=== PATIENT | female | born 1980 | race Caucasian/White ===

== ENCOUNTER → 2017-01-19 | Outpatient (CLI) | payer BC ==
[~2017-01-19] MED LIST: CEPH500C PO; SULF800T23 PO
== END | disposition home or self-care (01) ==
LOC: C.PAPS 11:11
PROVIDERS: ATTEND Family Medicine
DX: Z12.72 Encounter for screening for malignant neoplasm of vagina (principal)

== ENCOUNTER → 2018-01-18 | Outpatient (CLI) | payer BC | END | disposition home or self-care (01) | LOC: C.PAPS 13:30 | PROVIDERS: ATTEND Family Medicine | DX: Z12.72 Encounter for screening for malignant neoplasm of vagina (principal) ==

== ENCOUNTER 2022-06-02 11:11 | Inpatient (IN) ==
[2022-06-02 12:40] LABS: Basophils # (auto) 0.06 K/uL (0-0.2); Basophils % (auto) 0.7 %; Eosinophils # (auto) 0.07 K/uL (0-0.50); Eosinophils % (auto) 0.9 %; Hematocrit (blood only) 41.8 % (34.1-44.9); Hemoglobin 13.7 g/dl (12.0-16.0); Immature Granulocytes # (auto) 0.03 K/uL (0.00-0.02); Immature Granulocytes % (auto) 0.4 %; Lymphocytes # (auto) 2.15 K/uL (1.2-3.4); Lymphocytes % (auto) 26.1 %; Mean Corpuscular Hemoglobin 26.9 pg (25.0-34.0); Mean Corpuscular Hgb Conc 32.8 g/dL (32.0-36.0); Mean Corpuscular Volume 82.1 fL (80.0-100.0); Mean Platelet Volume 9.1 fL (9.4-12.3); Monocytes # (auto) 0.53 K/uL (0.24-0.82); Monocytes % (auto) 6.4 %; Neutrophils # (auto) 5.39 K/uL (1.4-6.5); Neutrophils % (auto) 65.5 %; Platelet Count 360 K/uL (130-400); RDW Coefficient of Variation 14.1 % (11.5-14.5); RDW Standard Deviation 42.2 fL (36.4-46.3); Red Blood Count 5.09 M/uL (3.93-5.22); White Blood Count 8.23 K/ul (4.8-10.8)
[2022-06-02 13:00] LABS: Albumin Globulin Ratio 1.2 (0.9-2); Albumin Level 4.4 gm/dl (3.4-5.0); BUN Creatinine Ratio 21.1 (10-20); Bilirubin,Total 0.6 mg/dl (0.2-1.0); Calcium 9.3 mg/dl (8.5-10.1); Creatinine Clr Calc Pharmacy 111.9 ml/min; Est GFR (African American) 134.4 ml/min; Globulin 3.6 gm/dl (2.5-4.0); Phosphorus 2.7 mg/dl (2.5-4.9)
[2022-06-02 13:03] LABS: Appearance Urine Cloudy (Clear); Bacteria Urine Automated 2+ (Negative); Bilirubin Urine Negative (Negative); Blood Urine Negative (Negative); Color Urine Yellow; Epithelial Cell Urine Auto >30 /lpf (0-5); Glucose Urine UA Negative (Negative); Ketones Urine Negative (Negative); Leukocyte Esterase Urine Negative (Negative); Nitrite Urine Negative (Negative); Protein Urine Negative (Negative); Urobilinogen Urine Negative (Negative); pH Urine 6.5 (4.5-7.5)
--- NOTE | 2022-06-02 14:11 | Emergency Department Note ---
Impression & Plan Right leg weakness, Demyelinating disease ED Provider Note HISTORY OF PRESENT ILLNESS: Patient is a 42 year old female presenting with right leg limp. Patient reports that for the past 4 days she has been having progressively worsening weakness and limp in her RLE. Reports she woke up 4 days ago and had difficulties ambulating secondary to dragging her right foot on the ground. Denies any injury to her leg or back. Denies any bowel or bladder incontinence. Denies any saddle anesthesia. Denies any pain down her leg. Denies any numbness or tingling down the leg. Reports it feels like her right ankle is inverting and she is unable to walk correctly. She has been using a crutch to help with balance. Reports she is unable to stand on her toes secondary to weakness in the leg. Denies any recent changes in medications. Denies any fevers. Denies any history of similar symptoms. Denies any family history of neurological disorders such as multiple sclerosis. Denies any pain in pelvis or injury to hips. Denies any noteable rashes. Patient reports her PCP saw her yesterday and she was noted to have low vitamin D levels. Reports she is scheduled for an MRI of her brain, but her symptoms worsened significantly over the past 48 hours, prompting her to present to the ER. She denies any numbness/tingling/weakness in any other extremities. Denies any headache or changes in vision. ROS: Constitutional: No fever, chills, or weakness Skin: No rash or diaphoresis HENT: No headaches or congestion Eyes: No vision changes Cardio: No chest pain, palpitations or leg swelling Respiratory: No cough, wheezing or shortness of breath GI: No nausea, vomiting, diarrhea, constipation : No dysuria, polyuria MSK: No joint or back pain +right leg limp Neuro: No loss of sensation, confusion, focal deficits, numbness, tingling Psychiatric: No mood changes PMHx: Depression PHYSICAL EXAM: Constitutional: Patient appears in no acute distress. HENT: Head: Normocephalic and atraumatic. Eyes: EOMI, PERRL Mouth/Throat: Mucous membranes moist. Neck: Trachea midline. Neck supple. Cardiovascular: RRR, No murmurs, rubs or gallops. Intact distal pulses. Pulmonary/Chest: No respiratory distress. Breath sounds clear and equal bilaterally. No wheezes or rales. No chest wall tenderness to palpation. Abdominal: BS +. Abdomen soft, no tenderness, rebound or guarding. Back: No midline spinal tenderness, no paraspinal tenderness, no CVA tenderness. Musculoskeletal: - RLE: Able to wiggle toes, dorsiflex/plantarflex ankle/flex and extend knee. Sensation intact to light tough throughout nerve distributions of leg. Intact DP/PT pulses. Skin: Warm and dry. No rash, erythema, pallor or cyanosis Psychiatric: Appropriate mood and affect for situation. Neurological: Alert and keenly responsive. CN II-XII grossly intact, moving all extremities equally and fully. Patient has Trandelenburg-like gait with putting weight on right leg. Unable to stand on right tip toes. No clonus. Babinski downgoing bilaterally. MDM: - Vitals signs stable. - Laboratory workup grossly unremarkable. - CT lumbar spine and pelvis showed degenerative disc disease. - MRI brain w/wo contrast showed findings concerning for demyelinating disorder, with noteable 1.4 cm lesion in left parietal lobe. MRI lumbar spine grossly unremarkable. - Discussed case with neurologist store operations specialist, Dr. Yadav. He recommended admission for PT/OT assessment as well as further workup such as LP. He recommends holding on steroids at this time. - Discussed results with patient and her . They were agreeable to admission. - Hospitalist consulted for admission. - Patient admitted to [facility] for further evaluation and management. ASSESSMENT AND PLAN: Diagnosis: RLE weakness; demyelinating disorder Plan: admit Past Med/Surg History Social History Smoking Status: Never smoker Feels Safe at Home: Yes Allergies Allergies Allergy/AdvReac Type Severity Reaction Status Date / Time [id number] Allergy Unknown Uncoded 06/13/04 10:28 Home Meds Home Medications Medication Instructions Recorded Confirmed sertraline 25 mg tablet 50 mg PO QAM 06/02/22 06/02/22 sertraline 50 mg tablet 50 mg PO QAM 06/02/22 06/02/22 Results & Data (ED) Vital Signs Vital Signs - 24 hr 06/02/22 11:15 Temperature 36.9 C Temperature Source Temporal Artery Scan Pulse Rate 82 Respiratory Rate 16 Respiratory Effort / Characteristics Non-Labored Respiratory Depth Normal Blood Pressure 124/84 Blood Pressure Mean 97 Pulse Oximetry 98 Oxygen Delivery Method Room Air Sepsis Recent Fever Within 48 Hours No Sepsis New/Unexplained Change in Mental Status No Sepsis Action Taken by Nursing No Action Required Laboratory Data Result diagrams: 06/02/22 12:21 06/02/22 12:21 Lab Results 06/02/22 06/02/22 06/02/22 Range/Units 12: 12:21 Unknown WBC 8.23 (4.8-10.8) K/ul RBC 5.09 (3.93-5.22) M/uL Hgb 13.7 (12.0-16.0) g/dl Hct 41.8 (34.1-44.9) % MCV 82.1 (80.0-100.0) fL MCH 26.9 (25.0-34.0) pg MCHC 32.8 (32.0-36.0) g/dL RDW Std Deviation 42.2 (36.4-46.3) fL RDW Coeff of July 14.1 (11.5-14.5) % Plt Count 360 (130-400) K/uL MPV 9.1 L (9.4-12.3) fL Immature Gran % (Auto) 0.4 % Neut % (Auto) 65.5 % Lymph % (Auto) 26.1 % Centre % (Auto) 6.4 % Eos % (Auto) 0.9 % Baso % (Auto) 0.7 % Neut # (Auto) 5.39 (1.4-6.5) K/uL Lymph # (Auto) 2.15 (1.2-3.4) K/uL Centre # (Auto) 0.53 (0.24-0.82) K/uL Eos # (Auto) 0.07 (0-0.50) K/uL Baso # (Auto) 0.06 (0-0.2) K/uL Immature Gran # (Auto) 0.03 H (0.00-0.02) K/uL Sodium 136 (136-145) mmol/L Potassium 4.0 (3.5-5.1) mmol/L Chloride 102 (98-107) mmol/L Carbon Dioxide 27 (21-32) mmol/L Anion Gap 7 (3-11) BUN 12 (6-23) mg/dl Creatinine 0.57 L (0.6-1.2) mg/dl Est Cr Clr Drug Dosing 111.9 ml/min Est GFR ( Amer) 134.4 ml/min Est GFR (Non-Af Amer) 116.0 ml/min BUN/Creatinine Ratio 21.1 H (10-20) Glucose 82 (70-99(Fasting)) mg/dl Calcium 9.3 (8.5-10.1) mg/dl Phosphorus 2.7 (2.5-4.9) mg/dl Magnesium 2.0 (1.7-2.4) mg/dl Total Bilirubin 0.6 (0.2-1.0) mg/dl AST 14 (13-39) U/L ALT 10 (7-52) U/L Alkaline Phosphatase 52 (34-104) U/L Total Protein 8.0 (6.0-8.3) gm/dl Albumin 4.4 (3.4-5.0) gm/dl Globulin 3.6 (2.5-4.0) gm/dl Albumin/Globulin Ratio 1.2 (0.9-2) Urine Color Yellow Urine Appearance Cloudy A (Clear) Urine pH 6.5 (4.5-7.5) Ur Specific [place] 1.020 (1.000-1.030) Urine Protein Negative (Negative) Urine Glucose (UA) Negative (Negative) Urine Ketones Negative (Negative) Urine Blood Negative (Negative) Urine Nitrite Negative (Negative) Urine Bilirubin Negative (Negative) Urine Urobilinogen Negative (Negative) Ur Leukocyte Esterase Negative (Negative) Urine WBC (Auto) 1-5 (0-5) /hpf Urine RBC (Auto) 10-30 H (0-4) /hpf U Hyaline Cast (Auto) 1-5 (0-5) /lpf U Epithel Cells (Auto) >30 H (0-5) /lpf Urine Bacteria (Auto) 2+ H (Negative) Administered Medications Discontinued Medications Gadobutrol (Gadobutrol 65ml Vial) 6 ml IV ONCE ONE Stop: 06/02/22 18:03 Last Admin: 06/02/22 18:02 Dose: 6 ml Documented By: AF Imaging Data Radiologist's Impression: Lumbar Spine CT 06/02/22 14:05 CT SCAN OF THE LUMBAR SPINE WITHOUT IV CONTRAST CLINICAL HISTORY: Difficulty with ambulation. Right leg limping. COMPARISON STUDY: No priors. TECHNIQUE: CT scan of the lumbar spine is performed from the lower thoracic spine to the sacrum. Images are reviewed in the axial, sagittal, and coronal planes. IV contrast was not administered for this examination. A dose lowering technique was utilized adhering to the principles of ALARA. CT DOSE: 815.38 mGy.cm FINDINGS: The skeletal structures are well-mineralized. Vertebral body height and alignment are maintained throughout the lumbar spine. There is straightening of the lumbar lordosis. Minimal levocurvature is centered at L3-L4. The transverse and spinous processes appear intact. There is no evidence of spondylolysis. No lytic or blastic lesion is seen. The disc spaces appear maintained. There is a posterior disc herniation eccentric to the left at L4-L5. This contributes to at least moderate central canal stenosis. There is no CT evidence of significant central canal stenosis at the remaining lumbar levels. Mild left lateral disc bulge is seen at L3-L4 and L4-L5. Small bilateral disc bulges are noted at L5-S1. The visualized sacrum and bony pelvis appear intact. The sacroiliac joints are normal as imaged. The paraspinous soft tissues are within normal limits. The retroperitoneal structures are normal as visualized. IMPRESSION: 1. No acute bony abnormality is seen involving the lumbar spine. 2. Degenerative disc disease as above with a disc herniation eccentric to the left at L4-L5. See discussion. ACT 112: Negative or not required by law. Dictated: 06/02/2022 2:30 PM Transcribed: 06/02/2022 2:43 PM Cyndie [id number] [email or web address] Electronically signed by: Luis Rodriguez M.D. 06/02/2022 2:[address] 06/02/22 14:[address] DOSE: HISTORY: right leg limp; inability to walk on toes TECHNIQUE: Multiaxial CT images of the pelvis were performed and reformatted in the sagittal and coronal plane without the use of contrast. A dose lowering technique was utilized adhering to the principles of ALARA. COMPARISON: None. FINDINGS: No fracture or dislocation within the pelvis or hips. Cartilage spaces within the bilateral hips are maintained for age. The sacrum and bilateral sacroiliac joints appear within normal limits. There is a 13 mm sclerotic focus within the right ischial tuberosity. This favors a benign cartilaginous lesion. No suspicious osseous lesions identified. No significant hip effusions. Trace pelvic free fluid. This is likely physiologic. There is a small left ovarian cyst. Normal bladder. Visualized appendix is unremarkable. IMPRESSION: No fracture or dislocation within the pelvis or hips. ACT 112: Negative or not required by law. Electronically signed by: Cayetano Hardwick M.D. 06/02/2022 2:48 PM Brain MRI 06/02/22 15:03 MRI OF THE BRAIN COMBO CLINICAL HISTORY: Right leg weakness. COMPARISON STUDY: No priors. TECHNIQUE: MRI of the brain was performed utilizing various T1 and T2-weighted sequences in the axial, sagittal, and coronal planes. Contrast-enhanced sequences were acquired following the administration of 6 cc of Gadavist. The examination is performed using the multiple sclerosis protocol. FINDINGS: Brain parenchyma: There are numerous (greater than 15) foci of T2 signal abnormality scattered throughout the subcortical and periventricular white matter. A focus in the high left parietal lobe white matter seen on coronal FLAIR image #16 measures up to 1.4 cm. This shows restricted diffusion and associated postcontrast enhancement. No additional lesions show postcontrast enhancement. There is no hemorrhage or mass effect. There is no restricted diffusion typical for acute ischemia. Garcia-white matter differentiation is preserved. No extra-axial fluid collection is seen. The cerebellar tonsils are normal in configuration. Ventricles, sulci, and cisterns: Normal in configuration. Pituitary and sella: Unremarkable. Intracranial vasculature: Normal flow voids are maintained at the skull base. Orbits: The bony orbits are grossly intact. Orbital contents are normal in appearance. Sinuses and mastoids: Clear. Calvarium: Unremarkable. Cervical cord: Partially visualized cervical spinal cord is normal in morphology and signal intensity. IMPRESSION: 1. There are numerous foci of T2 signal abnormality scattered in the subcortical compartment or white matter. 2. A 1.4 cm lesion in the left parietal lobe white matter shows restricted diffusion and postcontrast enhancement. This constellation of findings strongly favors a demyelinating disorder such as multiple sclerosis with active demyelination. Other etiologies such as infection or neoplasm are considered much less likely. Clinical correlation will be required and follow up with neurology is recommended. 3. None of the additional lesions show postcontrast enhancement. 4. There is no hemorrhage or mass effect. ACT 112: Negative or not required by law. Electronically signed by: Luis Rodriguez M.D. 06/02/2022 6:26 PM Lumbar Spine MRI 06/02/22 15:03 MRI OF THE LUMBAR SPINE WITHOUT IV CONTRAST CLINICAL HISTORY: Right leg weakness. Difficulty with ambulation. COMPARISON STUDY: CT of lumbar spine performed the same day 06/02/2022. TECHNIQUE: MRI of lumbar spine is performed utilizing various T1 and T2-weighted scans of the axial and sagittal planes. IV contrast was not administered for this examination. FINDINGS: Lumbar spine: Vertebral body height and alignment are maintained throughout the lumbar spine. Minimal lumbar levocurvature is noted. Normal marrow signal intensity is maintained. The visualized bony structures. The transverse and spinous processes appear intact. There is no evidence of spondylolysis. No destructive bony lesion is seen. Intervertebral discs: There is moderate degenerative disc desiccation. The disc spaces are maintained. Spinal cord: The visualized spinal cord is normal in morphology and signal intensity. The conus medullaris terminates at the level of L1. The nerve roots of the cauda equina are normal in morphology. L1-L2: Unremarkable. L2-L3: Unremarkable. L3-L4: Unremarkable. L4-L5: There is a central posterior disc protrusion with annular fissure. This abuts the transiting nerve roots. There is mild acquired compromise of the central canal at this level with a minimum AP diameter of 7 mm. The neural foramina are patent. L5-S1: There is minimal posterior disc protrusion with annular fissure. The central canal is clear. The neural foramina are patent. Sacrum: The visualized sacrum is normal in morphology and signal intensity. Soft tissues: The paraspinal soft tissues are within normal limits. The retroperitoneal structures are grossly unremarkable but incompletely assessed. IMPRESSION: 1. Degenerative disc disease at L4-L5 and L5-S1 as above. There is mild acquired compromise of the central canal at L4-L5. See discussion for detailed level analysis. 2. No destructive bony process is identified. Dictated: 06/02/2022 5:57 PM Transcribed: 06/02/2022 6:50 PM Chanda [id number] [email or web address] Electronically signed by: Luis Rodriguez M.D. 06/02/2022 6:57 PM Discharge Plan Visit Data Chief Complaint: Leg Injury/Pain Stated Complaint: LOST FUNCTION IN R LEG ED Provider: Samira Bustillo Discharge Problem: Right leg weakness, Demyelinating disease Patient Disposition: Admitted As Inpatient Forms Stand Alone Forms: My [facility] Prescriptions Prescriptions: No Action sertraline 25 mg tablet 50 mg PO QAM sertraline 50 mg tablet 50 mg PO QAM Referrals Referrals: Shy Carey [Primary Care Provider] -
--- NOTE | 2022-06-02 14:49 | CT Scan Report ---
PELVIS CT CT DOSE: HISTORY: right leg limp; inability to walk on toes TECHNIQUE: Multiaxial CT images of the pelvis were performed and reformatted in the sagittal and jake nal plane without the use of contrast. A dose lowering technique was utilized adhering to the princi ples of KYLE. COMPARISON: None. FINDINGS: No fracture or dislocation within the pelvis or hips. Cartilage spaces within the bilateral hips are maintained for age. The sacrum and bilateral sacroiliac joints appear within normal limits. There is a 13 mm sclerotic focus within the right ischial tuberosity. This favors a benign cartilagi nous lesion. No suspicious osseous lesions identified. No significant hip effusions. Trace pelvic anitha e fluid. This is likely physiologic. There is a small left ovarian cyst. Normal bladder. Visualized a ppendix is unremarkable. IMPRESSION: No fracture or dislocation within the pelvis or hips. ACT 112: Negative or not required by law. Electronically signed by: Cayetano Hardwick M.D. 06/02/2022 2:48 PM
--- NOTE | 2022-06-02 14:57 | CT Scan Report ---
CT SCAN OF THE LUMBAR SPINE WITHOUT IV CONTRAST CLINICAL HISTORY: Difficulty with ambulation. Right leg limping. COMPARISON STUDY: No priors. TECHNIQUE: CT scan of the lumbar spine is performed from the lower thoracic spine to the sacrum. Imag es are reviewed in the axial, sagittal, and coronal planes. IV contrast was not administered for this examination. A dose lowering technique was utilized adhering to the principles of ALARA. CT DOSE: 815.38 mGy.cm FINDINGS: The skeletal structures are well-mineralized. Vertebral body height and alignment are maint ained throughout the lumbar spine. There is straightening of the lumbar lordosis. Minimal levocurvatu re is centered at L3-L4. The transverse and spinous processes appear intact. There is no evidence of spondylolysis. No lytic or blastic lesion is seen. The disc spaces appear maintained. There is a post erior disc herniation eccentric to the left at L4-L5. This contributes to at least moderate central c anal stenosis. There is no CT evidence of significant central canal stenosis at the remaining lumbar levels. Mild left lateral disc bulge is seen at L3-L4 and L4-L5. Small bilateral disc bulges are note d at L5-S1. The visualized sacrum and bony pelvis appear intact. The sacroiliac joints are normal as imaged. The paraspinous soft tissues are within normal limits. The retroperitoneal structures are nor mal as visualized. IMPRESSION: 1. No acute bony abnormality is seen involving the lumbar spine. 2. Degenerative disc disease as above with a disc herniation eccentric to the left at L4-L5. See disc ussion. ACT 112: Negative or not required by law. Dictated: 06/02/2022 2:30 PM Transcribed: 06/02/2022 2:43 PM Cyndie [id number] [email or web address] Electronically signed by: Luis Rodriguez M.D. 06/02/2022 2:56 PM
[2022-06-02] MEDS ORDERED: GADOBUTROL 65ML VIAL IV ONE (18:02)
--- NOTE | 2022-06-02 18:29 | Magnetic Resonance Report ---
MRI OF THE BRAIN COMBO CLINICAL HISTORY: Right leg weakness. COMPARISON STUDY: No priors. TECHNIQUE: MRI of the brain was performed utilizing various T1 and T2-weighted sequences in the axial , sagittal, and coronal planes. Contrast-enhanced sequences were acquired following the administratio n of 6 cc of Gadavist. The examination is performed using the multiple sclerosis protocol. FINDINGS: Brain parenchyma: There are numerous (greater than 15) foci of T2 signal abnormality scattered throu ghout the subcortical and periventricular white matter. A focus in the high left parietal lobe white matter seen on coronal FLAIR image #16 measures up to 1.4 cm. This shows restricted diffusion and ass ociated postcontrast enhancement. No additional lesions show postcontrast enhancement. There is no he morrhage or mass effect. There is no restricted diffusion typical for acute ischemia. Garcia-white paulo er differentiation is preserved. No extra-axial fluid collection is seen. The cerebellar tonsils are normal in configuration. Ventricles, sulci, and cisterns: Normal in configuration. Pituitary and sella: Unremarkable. Intracranial vasculature: Normal flow voids are maintained at the skull base. Orbits: The bony orbits are grossly intact. Orbital contents are normal in appearance. Sinuses and mastoids: Clear. Calvarium: Unremarkable. Cervical cord: Partially visualized cervical spinal cord is normal in morphology and signal intensity . IMPRESSION: 1. There are numerous foci of T2 signal abnormality scattered in the subcortical compartment or white matter. 2. A 1.4 cm lesion in the left parietal lobe white matter shows restricted diffusion and postcontrast enhancement. This constellation of findings strongly favors a demyelinating disorder such as multipl e sclerosis with active demyelination. Other etiologies such as infection or neoplasm are considered much less likely. Clinical correlation will be required and follow up with neurology is recommended. 3. None of the additional lesions show postcontrast enhancement. 4. There is no hemorrhage or mass effect. ACT 112: Negative or not required by law. Electronically signed by: Luis Rodriguez M.D. 06/02/2022 6:26 PM
--- NOTE | 2022-06-02 18:58 | Magnetic Resonance Report ---
MRI OF THE LUMBAR SPINE WITHOUT IV CONTRAST CLINICAL HISTORY: Right leg weakness. Difficulty with ambulation. COMPARISON STUDY: CT of lumbar spine performed the same day 06/02/2022. TECHNIQUE: MRI of lumbar spine is performed utilizing various T1 and T2-weighted scans of the axial a nd sagittal planes. IV contrast was not administered for this examination. FINDINGS: Lumbar spine: Vertebral body height and alignment are maintained throughout the lumbar spine. Minimal lumbar levocurvature is noted. Normal marrow signal intensity is maintained. The visualized bony str uctures. The transverse and spinous processes appear intact. There is no evidence of spondylolysis. N o destructive bony lesion is seen. Intervertebral discs: There is moderate degenerative disc desiccation. The disc spaces are maintained . Spinal cord: The visualized spinal cord is normal in morphology and signal intensity. The conus medul mati terminates at the level of L1. The nerve roots of the cauda equina are normal in morphology. L1-L2: Unremarkable. L2-L3: Unremarkable. L3-L4: Unremarkable. L4-L5: There is a central posterior disc protrusion with annular fissure. This abuts the transiting n erve roots. There is mild acquired compromise of the central canal at this level with a minimum AP di ameter of 7 mm. The neural foramina are patent. L5-S1: There is minimal posterior disc protrusion with annular fissure. The central canal is clear. T he neural foramina are patent. Sacrum: The visualized sacrum is normal in morphology and signal intensity. Soft tissues: The paraspinal soft tissues are within normal limits. The retroperitoneal structures ar e grossly unremarkable but incompletely assessed. IMPRESSION: 1. Degenerative disc disease at L4-L5 and L5-S1 as above. There is mild acquired compromise of the ce ntral canal at L4-L5. See discussion for detailed level analysis. 2. No destructive bony process is identified. Dictated: 06/02/2022 5:57 PM Transcribed: 06/02/2022 6:50 PM Chanda [id number] [email or web address] Electronically signed by: Luis Rodriguez M.D. 06/02/2022 6:57 PM
[2022-06-02 22:39] LABS: Lyme Ab IgG w/WB Rflx Negative (Negative); Lyme Ab IgM w/WB Rflx Negative (Negative)
[2022-06-03] MEDS ORDERED: Patient's ALLERGY Info needs ENTERED SCH (02:30)
--- NOTE | 2022-06-03 07:32 | History & Physical Report ---
Date of Service June 02, 2022 Assessment & Plan (1) Right leg weakness: Plan: Patient presents with new onset right leg weakness has been present for the past 4 days Patient denies any trauma to the back or to the lower extremity CT of the spine shows minimal posterior disc protrusion and degenerative disc disease at L4-L5 with mild acquired compromise of the central canal at L4-L5. MRI of the brain shows numerous foci of T2 signal abnormality scattered in the subcortical compartment or white matter with a 1.4 cm lesion in the left parietal lobe white matter showing restricted diffusion and postcontrast enhancement. Neurology consultation placed from ED Plan to do a lumbar puncture in a.m. as per neurology (2) Demyelinating disease: Plan: MRI of the brain shows numerous foci of T2 signal abnormality scattered in the subcortical compartment or white matter with a 1.4 cm lesion in the left parietal lobe white matter showing restricted diffusion and postcontrast enhancement. These findings are consistent with demyelinating disorder such as multiple sclerosis with active demyelination Neurology consulted from ED and they recommended no IV steroids at this time Plan to do a lumbar puncture as per neurology (3) DVT prophylaxis: Plan: Subcu heparin 5000 every 12 hours for DVT prophylaxis Admission and Anticipated Discharge Date Admission Date: June 02, 2022 History of Present Illness Chief Complaint: Patient presents to ED with right leg weakness Primary Care Provider: Shy Carey This is a 42-year-old female with no significant past medical history who presents to the emergency department with complaints of progressively worsening right leg weakness over the past 4 days. Patient reports that she woke up about 4 days ago with complaints of right lower extremity weakness and experienced difficulty ambulating as she felt that she had to drag her right foot with sign ificant effort to walk. Patient reports that she has experienced progressing of the symptoms over the past few days and hence became concerned and presents to ED for further evaluation. Patient otherwise denies any injury to the back or lower right lower extremity. Patient reported the symptoms were present as soon as she woke up a few days ago and has steadily been worsening. Patient saw her PCP for evaluation who had ordered MRI as an outpatient which was scheduled for next week. Patient however was ambulating with help of crutch and felt her symptoms were worsening and hence presents to ED for evaluation. Patient otherwise denies any bowel or bladder incontinence. Patient denies any pain in her lower extremity. No saddle anesthesia reported. Patient denies any headache or any visual disturbances. The only abnormality her PCP had reported to her was her vitamin D levels were reported to be low. No fevers or chills reported. No recent COVID infection or flu infection Patient reports that she is unable to stand steadily on her right leg. Patient had a CT of the lumbar spine that shows degenerative disc disease with disc herniation at L4-L5 and subsequently patient had an MRI that shows numerous foci of T2 signal abnormality scattered in the subcortical compartment and a 1.4 cm lesion in the left parietal lobe white matter showing restricted diffusion and postcontrast enhancement and the findings indicating a demyelinating disorder such as multiple sclerosis with active demyelination but no hemorrhage or mass- effect noted. ED physician had contacted neurology who recommended no steroids at this time. Allergies Allergy/AdvReac Type Severity Reaction Status Date / Time No Known Allergies Allergy Unverified 06/03/22 06:16 Home Medications Medication Instructions Recorded Confirmed Type sertraline 25 mg tablet 50 mg PO QAM 06/02/22 06/02/22 History sertraline 50 mg tablet 50 mg PO QAM 06/02/22 06/02/22 History Past Med/Surg History Social History Smoking Status: Never smoker Second Hand Exposure: No; Do You Dip or Chew Tobacco: No; Hx Alcohol Use: Yes Alcohol type: wine and hard liquor Hx Substance Use: No Preferred Language: Citizen Of The [place] Communication Ability: Effective Criminal Researcher Required: No Beliefs That Will Affect Care: None Current Living Situation: Spouse Other Information That Helps Us Care for You: No Feels Safe at Home: Yes Safety Concerns: Feels Safe At This Time Assistive Devices: Crutches Review of Systems Constitutional: No fevers or chills Eyes: No visual disturbance Ear, Nose, Mouth, Throat: No headache or ear pain Respiratory: No shortness of breath reported Cardiovascular: Additional Comments: No chest pain or palpitations Gastrointestinal: No nausea vomiting Genitourinary: No dysuria or hematuria Musculoskeletal: Patient presents with right lower extremity weakness Integumentary: No rash Neurologic: Patient presents with progressively worsening right lower extremity weakness Physical Exam Constitutional: WD/WN, vitals as above ENMT: external ear and nose normal, oropharynx normal Neck: trachea midline, no thyromegaly Respiratory: normal respiratory effort, lungs clear to auscultation Cardiovascular: RRR, no murmur, no edema Gastrointestinal (Abdomen): normal bowel sounds, soft, nontender, no hepatosplenomegaly Musculoskeletal: Patient has right lower extremity weakness and difficulty ambulating with the right leg Skin: No rash Neurologic: Patient awake responsive, cranial nerves grossly intact Patient able to wiggle toes on both lower extremities able to dorsiflex and plantarflex the ankle on both lower extremities Right side weaker than the left on motor exam, plantar reflex flexor bilaterally Results & Data Results & Data ([facility]) Vital Signs (Past 12 Hours) Vital Signs Temp Pulse Pulse Resp BP Pulse Ox O2 Del Method 06/03/22 04:46 36.5 C 56 L 16 99/63 L 98 Room Air 06/03/22 01:35 66 06/03/22 01:28 36.5 C 70 18 96/65 L 98 Room Air 06/02/22 23:00 36.6 C 75 18 110/63 97 Room Air Laboratory Results Short CBC 06/02/22 Range/Units 12:21 WBC 8.23 (4.8-10.8) K/ul Hgb 13.7 (12.0-16.0) g/dl Hct 41.8 (34.1-44.9) % Plt Count 360 (130-400) K/uL BMP 06/02/22 12:21 Sodium 136 Potassium 4.0 Chloride 102 Carbon Dioxide 27 BUN 12 Creatinine 0.57 L Glucose 82 Calcium 9.3 Liver Function 06/02/22 Range/Units 12:21 Total Bilirubin 0.6 (0.2-1.0) mg/dl AST 14 (13-39) U/L ALT 10 (7-52) U/L Alkaline Phosphatase 52 (34-104) U/L Albumin 4.4 (3.4-5.0) gm/dl Urine 06/02/22 Range/Units Unknown Urine Color Yellow Urine Appearance Cloudy A (Clear) Urine pH 6.5 (4.5-7.5) Ur Specific [place] 1.020 (1.000-1.030) Urine Protein Negative (Negative) Urine Glucose (UA) Negative (Negative) Diagnostic Findings Lumbar Spine CT 06/02/22 14:05 CT SCAN OF THE LUMBAR SPINE WITHOUT IV CONTRAST CLINICAL HISTORY: Difficulty with ambulation. Right leg limping. COMPARISON STUDY: No priors. TECHNIQUE: CT scan of the lumbar spine is performed from the lower thoracic spine to the sacrum. Images are reviewed in the axial, sagittal, and coronal planes. IV contrast was not administered for this examination. A dose lowering technique was utilized adhering to the principles of ALARA. CT DOSE: 815.38 mGy.cm FINDINGS: The skeletal structures are well-mineralized. Vertebral body height and alignment are maintained throughout the lumbar spine. There is straightening of the lumbar lordosis. Minimal levocurvature is centered at L3-L4. The t ransverse and spinous processes appear intact. There is no evidence of spondylolysis. No lytic or blastic lesion is seen. The disc spaces appear maintained. There is a posterior disc herniation eccentric to the left at L4-L5. This contributes to at least moderate central canal stenosis. There is no CT evidence of significant central canal stenosis at the remaining lumbar levels. Mild left lateral disc bulge is seen at L3-L4 and L4-L5. Small bilateral disc bulges are noted at L5-S1. The visualized sacrum and bony pelvis appear intact. The sacroiliac joints are normal as imaged. The paraspinous soft tissues are within normal limits. The retroperitoneal structures are normal as visualized. IMPRESSION: 1. No acute bony abnormality is seen involving the lumbar spine. 2. Degenerative disc disease as above with a disc herniation eccentric to the left at L4-L5. See discussion. ACT 112: Negative or not required by law. Dictated: 06/02/2022 2:30 PM Transcribed: 06/02/2022 2:43 PM Cyndie [id number] QUETA_Vitor Electronically signed by: Luis Rodriguez M.D. 06/02/2022 2:[address] 06/02/22 14:[address] DOSE: HISTORY: right leg limp; inability to walk on toes TECHNIQUE: Multiaxial CT images of the pelvis were performed and reformatted in the sagittal and coronal plane without the use of contrast. A dose lowering technique was utilized adhering to the principles of ALARA. COMPARISON: None. FINDINGS: No fracture or dislocation within the pelvis or hips. Cartilage spaces within the bilateral hips are maintained for age. The sacrum and bilateral sacroiliac joints appear within normal limits. There is a 13 mm sclerotic focus within the right ischial tuberosity. This favors a benign cartilaginous lesion. No suspicious osseous lesions identified. No significant hip effusions. Trace pelvic free fluid. This is likely physiologic. There is a small left ovarian cyst. Normal bladder. Visualized appendix is unremarkable. IMPRESSION: No fracture or dislocation within the pelvis or hips. ACT 112: Negative or not required by law. Electronically signed by: Cayetano Hardwick M.D. 06/02/2022 2:48 PM Brain MRI 06/02/22 15:03 MRI OF THE BRAIN COMBO CLINICAL HISTORY: Right leg weakness. COMPARISON STUDY: No priors. TECHNIQUE: MRI of the brain was performed utilizing various T1 and T2-weighted sequences in the axial, sagittal, and coronal planes. Contrast-enhanced sequences were acquired following the administration of 6 cc of Gadavist. The examination is performed using the multiple sclerosis protocol. FINDINGS: Brain parenchyma: There are numerous (greater than 15) foci of T2 signal abnormality scattered throughout the subcortical and periventricular white matter. A focus in the high left parietal lobe white matter seen on coronal FLAIR image #16 measures up to 1.4 cm. This shows restricted diffusion and associated postcontrast enhancement. No additional lesions show postcontrast enhancement. There is no hemorrhage or mass effect. There is no restricted diffusion typical for acute ischemia. Garcia-white matter differentiation is preserved. No extra-axial fluid collection is seen. The cerebellar tonsils are normal in configuration. Ventricles, sulci, and cisterns: Normal in configuration. Pituitary and sella: Unremarkable. Intracranial vasculature: Normal flow voids are maintained at the skull base. Orbits: The bony orbits are grossly intact. Orbital contents are normal in appearance. Sinuses and mastoids: Clear. Calvarium: Unremarkable. Cervical cord: Partially visualized cervical spinal cord is normal in morphology and signal intensity. IMPRESSION: 1. There are numerous foci of T2 signal abnormality scattered in the subcortical compartment or white matter. 2. A 1.4 cm lesion in the left parietal lobe white matter shows restricted diffusion and postcontrast enhancement. This constellation of findings strongly favors a demyelinating disorder such as multiple sclerosis with active demyelination. Other etiologies such as infection or neoplasm are considered much less likely. Clinical correlation will be required and follow up with neurology is recommended. 3. None of the additional lesions show postcontrast enhancement. 4. There is no hemorrhage or mass effect. ACT 112: Negative or not required by law. Electronically signed by: Luis Rodriguez M.D. 06/02/2022 6:26 PM Lumbar Spine MRI 06/02/22 15:03 MRI OF THE LUMBAR SPINE WITHOUT IV CONTRAST CLINICAL HISTORY: Right leg weakness. Difficulty with ambulation. COMPARISON STUDY: CT of lumbar spine performed the same day 06/02/2022. TECHNIQUE: MRI of lumbar spine is performed utilizing various T1 and T2-weighted scans of the axial and sagittal planes. IV contrast was not administered for this examination. FINDINGS: Lumbar spine: Vertebral body height and alignment are maintained throughout the lumbar spine. Minimal lumbar levocurvature is noted. Normal marrow signal intensity is maintained. The visualized bony structures. The transverse and spinous processes appear intact. There is no evidence of spondylolysis. No destructive bony lesion is seen. Intervertebral discs: There is moderate degenerative disc desiccation. The disc spaces are maintained. Spinal cord: The visualized spinal cord is normal in morphology and signal intensity. The conus medullaris terminates at the level of L1. The nerve roots of the cauda equina are normal in morphology. L1-L2: Unremarkable. L2-L3: Unremarkable. L3-L4: Unremarkable. L4-L5: There is a central posterior disc protrusion with annular fissure. This abuts the transiting nerve roots. There is mild acquired compromise of the central canal at this level with a minimum AP diameter of 7 mm. The neural foramina are patent. L5-S1: There is minimal posterior disc protrusion with annular fissure. The central canal is clear. The neural foramina are patent. Sacrum: The visualized sacrum is normal in morphology and signal intensity. Soft tissues: The paraspinal soft tissues are within normal limits. The retroperitoneal structures are grossly unremarkable but incompletely assessed. IMPRESSION: 1. Degenerative disc disease at L4-L5 and L5-S1 as above. There is mild acquired compromise of the central canal at L4-L5. See discussion for detailed level analysis. 2. No destructive bony process is identified. Dictated: 06/02/2022 5:57 PM Transcribed: 06/02/2022 6:50 PM Chanda [id number] QUETA_Johnathan Electronically signed by: Luis Rodriguez M.D. 06/02/2022 6:57 PM Code Status & VTE Plan VTE Prophylaxis Plan VTE Prophylaxis will be ordered: Yes PG Care Time/CCT Total # of Minutes Spent Total Time Spent with Patient: Total time spent is greater than 50% in coordination of care (as documented) at patient's floor/unit and/or counseling patient: Coding Level of Care Code INT OBSERVATION CARE 50M LVL 2 Diagnoses Right leg weakness R29.898 Demyelinating disease G37.9 DVT prophylaxis Z29.9
[2022-06-03] MEDS ORDERED: SERTRALINE HCL 50 MG TABLET PO SCH ×4 (09:00→21:00)
[2022-06-03] MEDS ORDERED: HEPARIN SOD 5,000 UNIT/0.5 ML VIAL SQ SCH (09:00)
--- NOTE | 2022-06-03 09:19 | Neurology Consultation ---
Date of Consultation June 03, 2022 Assessment & Plan (1) Multiple sclerosis: Plan 42-year-old female with probable multiple sclerosis. She presents with her first clinical attack consisting of weakness/dystonia of the right lower limb which is likely related to an enhancing tumefactive lesion seen within her left parietal lobe. There are multiple chronic demyelinating lesions as well on her MRI in a pattern highly suggestive of multiple sclerosis. In fact, when applying the 2017 Browning criteria for diagnosis of multiple sclerosis, this patient meets the criteria for dissemination in space and time based on clinical presentation and MRI findings which include acute and chronic lesions. I also note that she has reported episodes of unusual right-sided head/facial pain that has been an intermittent problem over the past few years. She may have an element of atypical trigeminal neuralgia which can also be considered a clinical feature of multiple sclerosis in the appropriate context. To further support a diagnosis of multiple sclerosis I would recommend compl etion of a lumbar puncture with MS panel. Abnormal oligoclonal banding could further support dissemination in time and serve as a potential predictor for future relapse. I would also recommend obtaining gadolinium-enhanced MRI of the cervical and thoracic spine. She does not complain of symptoms that are suggestive of spinal cord demyelination. Nonetheless, many individuals with multiple sclerosis will also have evidence of spinal cord involvement. I do not think her clinical presentation is highly suggestive of ADEM or neuromyelitis optica spectrum disorder. Would check some additional screening labs, ESR, CRP, GLYNN screen with titer, Sjogren's antibodies, angiotensin-converting enzyme, vitamin B12 level, TFT's After review of preliminary LP results, would likely recommend starting high- dose corticosteroids, IV Solu-Medrol, 1 g/day for 3 days, followed by Medrol Dosepak taper. Consider a trial of gabapentin to address muscle cramps or spasms to the right lower limb. PT/OT Patient will need additional outpatient neurology follow-up for further review of her MS panel when available, typically takes about 7 days. Assuming results are positive would likely recommend starting disease modifying therapy in that context. Given extent of demyelinating disease depicted on MRI and clinical presentation with an active lesion, I would likely recommend starting a high efficacy treatment such as Ocrevus or an S1P receptor modulator such as Zeposia. 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 She denies associated numbness or pain. She has difficulty controlling the foot, initiating movement, and with walking. Her symptoms have been fairly persistent and are not significantly changed today compared to yesterday. She has never had similar symptoms previously. She endorses a history of mild low back pain from time to time for which she has had osteopathic and chiropractic manipulation. No other significant spinal or joint problems. He denies any difficulty with bladder control. No known history of optic neuritis, painful vision loss or diplopia. She does follow with an life claims examiner for monitoring of her ocular pressures and for optic nerve drusen. She does admit that she has experienced episodic right facial pain, primarily located around the right eye and temporal region which has been present for the past few years. No associated vision loss or facial numbness. Sometimes the right ear is involved as well. Episodes are typically brief and occur without trigger. She does recall having a nonspecific viral illness a few weeks ago that have been going through her school at that time as well. She received an influenza and COVID vaccination back in February. A lumbar spine MRI revealed degenerative changes at L4-5 and L5-S1 with mild central canal stenosis at L4-5. A brain MRI revealed multiple foci of scattered T2/FLAIR hyperintensity throughout the supratentorial brain, periventricular and subcortical locations. There is a larger ovoid lesion measuring about 1.4 cm within the left parietal lobe with associated restricted diffusion and postcontrast enhancement likely consistent with an active demyelinating plaque. Overall, imaging is suggestive of multiple sclerosis with either infectious and neoplastic etiologies considered much less likely. I did independently review these images and agree with the findings as described by the interpreting radiologist. I do note there are multiple perpendicularly oriented lesions adjacent to the lateral ventricles observed on high resolution FLAIR sequences consistent with Sotelo's fingers. The lesion within the left parietal lobe has a tumefactive/concentric appearance. Allergies Allergy/AdvReac Type Severity Reaction Status Date / Time No Known Allergies Allergy Unverified 06/03/22 06:16 Home Medications Medication Instructions Recorded Confirmed Type sertraline 25 mg tablet 50 mg PO QAM 06/02/22 06/02/22 History sertraline 50 mg tablet 50 mg PO QAM 06/02/22 06/02/22 History Patient History Social History Smoking Status: Never smoker Second Hand Exposure: No; Do You Dip or Chew Tobacco: No; Hx Alcohol Use: Yes Alcohol type: wine and hard liquor Hx Substance Use: No Preferred Language: Latvian Communication Ability: Effective Foundry Worker Required: No Beliefs That Will Affect Care: None Current Living Situation: Spouse Other Information That Helps Us Care for You: No Feels Safe at Home: Yes Safety Concerns: Feels Safe At This Time Assistive Devices: Crutches Review of Systems Constitutional: no fever and no chills Eyes: no blind spots, no diplopia and no eye pain Ear, Nose, Mouth, Throat: no ear pain and no hearing loss Respiratory: no cough and no dyspnea Cardiovascular: no chest pain and no palpitations Gastrointestinal: no nausea and no vomiting Genitourinary: no dysuria and no urinary incontinence Musculoskeletal: + back pain; no neck pain, no joint pain and no myalgia Integumentary: no rash and no lesions Neurologic: as per Subjective / HPI, + gait abnormality, + localized weakness and + syncope (rare episodes of vasovagal syncope); no headache(s), no confusion and no memory loss Psychiatric: no depression and no anxiety Hematologic / Lymphatic: no easy bleeding and no easy bruising Exam (Neuro) Constitutional: well developed and well nourished; no acute distress Eyes: normal visual perez by confrontation, PERRL, normal accommodation and EOM intact bilaterally; no fundoscopic abnormality, no nystagmus and no papilledema Cardiovascular: Vessels: normal carotid upstroke; no carotid bruit Neurologic: Oriented to:: Person, Place and Time Memory: Short Term Intact and Remote Intact Attention: Span Intact and Concentration Intact Language: Naming Objects and Repeating Phrases Speech Fluency: negative Dysarthria Speech Aphasia: negative Aphasia Fund of Knowledge: Current Events, Past History and Vocabulary Cranial Nerves: Normal II (Visual perez full to confrontation, visual acuity normal), III, IV, (Pupils equal round reactive to light and accommodation, eye movements normal), V (Facial sensation intact), VII (There is no facial droop or weakness), VIII (Hearing intact), IX, X (Palate elevates to midline), XI (Shoulder shrug intact) and XII (Tongue protrudes to midline) Motor Strength: Normal Upper Extremities; negative Normal Lower Extremities (mild weakness RLE) or Pronator Drift Motor Tone: Normal Lower Extremities and Normal Upper Extremities Muscle Bulk/Involuntary Movements: No Involuntary Movements; negative Muscle Atrophy Sensation: Light Touch Intact, Pain/Temperature Intact, Vibration Intact and Proprioception Intact Coordination: Normal and Heel-Cortes Abnormal Laterality: Right; negative Limited Balance, Dysdiadochokinesia or Finger-Nose Abnormal Deep Tendon Reflexes: Rt Triceps: 2+, Lt Triceps: 2+, Rt Biceps: 2+, Lt Biceps: 2+, Rt Brachioradialis: 2+, Lt Brachioradialis: 2+, Rt Patellar: 3+, Lt Patellar: 3+, Rt Ankle: 2+ and Lt Ankle: 1+ Special Tests: Babinski Present Gait: Hemiparetic Details: Deep tendon reflexes are brisk at both patellar tendons although mildly brisker on the right. The right Achilles tendon reflexes intact, left diminished. Right plantar response upgoing. Patient exhibits diminished movement initiation for the right leg ankle and foot. Results & Data ([facility]) Vital Signs (Past 12 Hours) Vital Signs Temp Pulse Pulse Resp BP Pulse Ox O2 Del Method 06/03/22 08:03 36.7 C 77 16 101/62 98 Room Air 06/03/22 04:46 36.5 C 56 L 16 99/63 L 98 Room Air 06/03/22 01:35 66 06/03/22 01:28 36.5 C 70 18 96/65 L 98 Room Air 06/02/22 23:00 36.6 C 75 18 110/63 97 Room Air Laboratory Results WBC 8.23, hemoglobin 13.7, hematocrit 41.8, MCV 82.1, platelet count 360, sodium 136, potassium 4.0, BUN 12, creatinine 0.57, glucose 82, calcium 9.3, magnesium 2.0, AST 14, ALT 10, Lyme screen negative, SARS-CoV-2 negative Diagnostic Findings MRI of the brain and lumbar spine are as described above in the history of present illness, I independently reviewed these images. Coding Level of Care Code 13584 Initial Inpt Care Lvl 3 Diagnoses Multiple sclerosis G35
[2022-06-03] MEDS ORDERED: GADOBUTROL 65ML VIAL IV ONE (13:35)
[2022-06-03 14:34] LABS: Appearance CSF Clear; CSF Count Tube # 3; CSF Xanthrochromic No xanthochromia; Color CSF Colorless
--- NOTE | 2022-06-03 14:34 | Fluoroscopy Report ---
FL lumbar puncture diagnostic CLINICAL HISTORY: 42 years-old Female with possible MS. Right lower extremity weakness with MS mariela p PROCEDURE: The risks, benefits, and alternatives to the procedure is discussed with the patient who v oiced understanding. Written informed consent was obtained. The patient was placed prone on the fluor oscopy table. The lower back was prepped and draped in the usual sterile fashion. 1% lidocaine was us ed for local anesthesia. A 20-gauge spinal needle was inserted into the L2-L3 interlaminar space, and approximately 10 cc of clear colorless cerebrospinal fluid was removed. The patient tolerated the pr ocedure well. There were no immediate complications. The patient was then transported back to [facility] or for further observation and treatment. Fluoroscopy time: 0.5 minutes. One image was submitted for review. IMPRESSION: Fluoroscopic guided lumbar puncture with removal of approximately 10 cc of cerebrospinal fluid. There were no immediate complications. ACT 112: Negative or not required by law. The above report was generated using voice recognition software. It may contain grammatical, syntax o r spelling errors. Electronically signed by: Herbie Trammell M.D. 06/03/2022 2:31 PM
[2022-06-03 15:03] LABS: Total Protein CSF 44.7 mg/dl (15-45)
--- NOTE | 2022-06-03 15:08 | Magnetic Resonance Report ---
MRI OF THE THORACIC SPINE COMBO CLINICAL HISTORY: Demyelinating disease. Lower extremity weakness. COMPARISON STUDY: No priors. TECHNIQUE: MRI of the thoracic spine is performed utilizing various T1 and T2-weighted sequences in a xial and sagittal planes. Contrast-enhanced sequences were acquired following intravenous administrat ion of 6.2 cc of Gadavist. FINDINGS: Vertebral body height and alignment are maintained throughout the thoracic spine. Normal ma rrow signal intensity is preserved throughout the visualized bony structures. The spinous processes a ppear intact. No destructive bony lesion is seen. The intervertebral disks are normal in height and s ignal intensity. There is no disc herniation or central canal stenosis. The thoracic spinal cord is n ormal in morphology and signal intensity. The conus medullaris terminates at the level of L1. No abno rmal postcontrast enhancement is seen. There is no evidence of significant neural foraminal narrowing throughout the thoracic region. The paraspinous soft tissues are normal as visualized. There is no p leural effusion. IMPRESSION: 1. There is no disc herniation, central canal stenosis, or neural foraminal narrowing seen throughout the thoracic spine. 2. The thoracic cord is normal in morphology and signal intensity with no abnormal postcontrast enhan cement identified. Dictated: 06/03/2022 1:48 PM Transcribed: 06/03/2022 2:50 PM Chanda [id number] [email or web address] Electronically signed by: Luis Rodriguez M.D. 06/03/2022 3:07 PM
[2022-06-03 15:49] LABS: Cryptococcus neoformans/ga PCR Not Detected (NotDetected); Cytomegalovirus PCR Not Detected (NotDetected); Enterovirus PCR Not Detected (NotDetected); Escherichia coli K1 PCR Not Detected (NotDetected); Haemophilius influenzae PCR Not Detected (NotDetected); Herpes Simplex Virus 1 PCR Not Detected (NotDetected); Herpes Simplex Virus 2 PCR Not Detected (NotDetected); Human Herpes Virus 6 PCR Not Detected (NotDetected); Human Parechovirus PCR Not Detected (NotDetected); Listeria monocytogenes PCR Not Detected (NotDetected); Neisseria meningitidis PCR Not Detected (NotDetected); Streptococcus agalactiae PCR Not Detected (NotDetected); Streptococcus pneumoniae PCR Not Detected (NotDetected); Varicella Zoster Virus PCR Not Detected (NotDetected)
--- NOTE | 2022-06-03 16:43 | Magnetic Resonance Report ---
CLINICAL HISTORY: suspected MS TECHNIQUE: MRI of the cervical spine is performed utilizing various T1 and T2 sequences in the axial and sagittal planes. IV contrast was administered for this examination. Comparison: None available at the time of this dictation. FINDINGS: There is straightening of the cervical spine. On degenerative changes are seen at C6-C7. C2-C3: Unremarkable. C3-C4: Unremarkable. C4-C5: Unremarkable. C5-C6: Unremarkable. C6-C7: Disc osteophyte complex results in mild canal stenosis without significant neuroforaminal sten osis. C7-T1: Unremarkable. The spinal ligaments are intact, without evidence of disruption or abnormal signal intensity. The spi nal cord is normal in signal intensity and there is no evidence of cord contusion. There is no eviden ce of an extradural, intradural, extramedullary or intramedullary lesion. Visualized soft tissues are normal. Visualized brain parenchyma is normal. IMPRESSION: No T2 hyperintensities are seen to suggest demyelinating disease. No abnormal enhancement. Mild degen erative changes as above. ACT 112: Negative or not required by law. Electronically signed by: Richard Yo M.D. 06/03/2022 4:41 PM
[2022-06-03] MEDS: methylPREDNISolone 1,000 MG in DEXTROSE 5% 250 ML IV SCH (17:30)
[2022-06-03] MEDS: PANTOprazole 40 MG TAB PO SCH (17:30)
[2022-06-03] MEDS: SERTRALINE HCL 50 MG TABLET PO SCH (20:52)
--- NOTE | 2022-06-03 22:25 | Hospitalist Progress Note ---
Date of Service June 03, 2022 Assessment & Plan (1) Multiple sclerosis: Plan: Patient presents with new onset right lower extremity weakness/dystonia for the past 4 days Patient denies any trauma to the back or to the lower extremity No other focal neurological symptoms or visual changes prior to this CT of the spine shows minimal posterior disc protrusion and degenerative disc disease at L4-L5 with mild acquired compromise of the central canal at L4-L5. MRI of the brain shows numerous foci of T2 signal abnormality scattered in the subcortical compartment or white matter with a 1.4 cm lesion in the left parietal lobe white matter showing restricted diffusion and postcontrast enhancement consistent with demyelinating disease. Serum Lyme serology is negative TSH normal, ESR elevated at 30, CRP negative Does have a history of vitamin D deficiency with recent level being 20 as per patient COVID-19 negative Neurology consultation appreciated-by definition, she meets criteria for multiple sclerosis as her MRI includes acute and chronic appearing lesions as well as her focal neurological symptoms and perhaps some intermittent facial pain and headaches over the past few years. Neurology does not think her clinical presentation is highly suggestive of ADEM (she did have a recent viral sounding URI) or neuromyelitis optica spectrum disorder. Not likely to be brain metastases as per my discussion with neurology given presentation and appearance. -Recommended completion of evaluation for MS with the following: -Cervical and thoracic spine MRIs-completed and no evidence of further lesions -GLYNN, ANCA, Sjogren's antibodies, angiotensin converting enzyme, B12 level all ordered and pending -Lumbar puncture-performed on 06/03-no evidence of meningitis, Lyme CSF pending, Gram stain negative and culture pending, oligo clonal bands/MS panel pending and will take approximately 1 week to return -Begin Solu-Medrol 1000 mg IV once daily x3 days then follow with the Medrol dose pack taper on discharge -Start Protonix 40 mg p.o. daily to prevent GI related symptoms with high-dose steroids -Can give lorazepam as needed for anxiety related to steroid use and situational anxiety -Continue to monitor on telemetry in case has tachycardia associated with high- dose steroids -Watch for signs of increased intraocular pressure while on steroids given her known ocular hypertension (2) Right leg weakness: Plan: As above Consult PT/OT to evaluate and make recommendations for necessary assistive devices and/or orthotics (3) Anxiety disorder: Plan: Continue home sertraline 75 mg p.o. at bedtime Can give lorazepam as needed for situational anxiety secondary to ongoing current medical issues or if has insomnia related to high-dose steroids (4) Vitamin D deficiency: Plan: Reports history of severe vitamin D deficiency but most recent level was up to 20 Continue home vitamin D3 5000 units once daily Follow-up as an outpatient (5) Ocular hypertension: Plan: Follows with military communications specialist in [facility] Given that steroids can increase intraocular pressure, she will need close follow-up after discharge Our nurse navigator will help to arrange this appointment Monitor for pain in the eye or changes in vision with treatment (6) Microscopic hematuria: Plan: Urinalysis contaminated with many epithelial cells but also with 10-20 RBCs/hpf LMP 2 weeks ago Urine culture with pinpoint growth preliminarily but suspect this is a contaminated sample given all the epithelial cells and 0 WBCs Plan to repeat urinalysis in a few weeks from now with a clean-catch to ensure no true persistent microscopic hematuria (7) DVT prophylaxis: Plan: Hold SQ heparin for lumbar puncture Disposition-continued stay Admission and Anticipated Discharge Date Admission Date: June 02, 2022 Subjective Patient continues to have weakness and difficulty moving her right leg and foot/ankle. She is understandably upset at the possibility that she may have multiple sclerosis. She does have a history of ocular hypertension and follows with a military communications specialist in [facility]. She is no longer on eyedrops to lower her pressure, but is monitored on a regular basis. Otherwise, she has not had any visual disturbances. Denies any numbness or tingling or weakness anywhere else. She does have a history of headaches which she attributes to strain from working in front of a computer. Did have a recent upper respiratory infection with runny nose. But denies fevers or sore throat, no cough. No shortness of breath or chest pain. No nausea or abdominal pain. No issues with constipation or diarrhea. No joint pains or rashes. No urinary issues. LMP approximately 2 weeks ago. Telemetry with NSR, rates in the 60-70s I discussed her care with the neurologist. Review of Systems Review of Systems: All systems reviewed & are unremarkable except as noted in HPI & below Physical Exam Constitutional: WD/WN, vitals as above Eyes: PERRL, conjunctivae normal, anicteric sclerae EOM intact bilaterally; no eyelid abnormality, no anisocoria and no nystagmus ENMT: external ear and nose normal, oropharynx normal Mouth: no oral mucosal abnormality Neck: trachea midline, no thyromegaly Respiratory: normal respiratory effort, lungs clear to auscultation Cardiovascular: RRR, no murmur, no edema Chest (Breasts): Chest: normal inspection of chest Gastrointestinal (Abdomen): normal bowel sounds, soft, nontender, no hepatosplenomegaly Musculoskeletal: Extremities: extremities normal to inspection; no cyanosis and no clubbing Skin: no rashes, warm and dry Neurologic: PERRL, EOMI, accommodation nl, no face palsy, no dysarthria deep tendon reflexes 2+ bilaterally, moves all extremities, + focal motor deficit (4+/5 strength RLE throughout, otherwise 5/5 throughout) and awake Speech / Cognition: normal speech Motor/Sensory: no tremor and no sensory deficit (Intact to light touch throughout upper and lower extremities bilaterally) Cranial Nerves: normal facial strength, tongue midline, normal hearing, able to elevate shoulders bilaterally, no nystagmus and symmetric palate elevation Gait: + gait assisted Psychiatric: A+Ox3, euthymic affect Lymphatic: no lymphedema Results & Data [facility] Vital Signs (Past 12 Hours) Vital Signs Temp Pulse Resp BP Pulse Ox O2 Del Method 06/03/22 19:41 36.6 C 71 16 117/67 95 Room Air 06/03/22 14:30 36.8 C 68 16 111/69 98 Room Air 06/03/22 11:31 36.9 C 66 16 115/73 95 Room Air Laboratory Results 06/03/22 06/03/22 06/03/22 Range/Units 14:56 14:02 14:02 ESR (0-20) mm/hr C-Reactive Protein (0-0.5) mg/dl TSH (0.300-4.500) uIu/ml Fld Lyme DNA (PCR) Pending Fluid Comment CSF Appearance CSF Color Xanthrochromic CSF WBC (0-5) CSF RBC (0-) CSF Cell Count Tube # CSF Chemistry Tube # CSF Glucose (40-70) mg/dl CSF LDH CSF Total Protein (15-45) mg/dl CSF Albumin Pending CSF IgG Pending CSF IgG Index Pending CSF IgG Synthesis Rate Pending CSF Myelin Basic Protein Pending CSF IgG Oligoclonal Bnd Pending CSF Lyme IgG (Immblot) Pending CSF Lyme IgG Bands Det Pending CSF Lyme IgM (Immblot) Pending CSF Lyme IgM Bands Det Pending CSF C.neoform/gat PCR Not Detected (NotDetected) CSF CMV DNA (PCR) Not Detected (NotDetected) CSF Enterovirus (PCR) Not Detected (NotDetected) CSF E. coli K1 (PCR) Not Detected (NotDetected) CSF H. influenzae (PCR) Not Detected (NotDetected) CSF HSV I (PCR) Not Detected (NotDetected) CSF HSV II (PCR) Not Detected (NotDetected) CSF HHV 6 (PCR) Not Detected (NotDetected) CSF L.monocytogenes PCR Not Detected (NotDetected) CSF N. meningitidis PCR Not Detected (NotDetected) CSF Parechovirus (PCR) Not Detected (NotDetected) CSF S. agalactiae (PCR) Not Detected (NotDetected) CSF S. pneumoniae (PCR) Not Detected (NotDetected) CSF VZV DNA (PCR) Not Detected (NotDetected) IgG Pending Albumin (NASH) Pending GLYNN Screen ANCA Lyme Specimen Source Pending Lyme Disease IgG Ab (Negative) Lyme Disease IgM Ab (Negative) 06/03/22 06/03/22 06/03/22 Range/Units 14:02 14:02 14:02 ESR (0-20) mm/hr C-Reactive Protein (0-0.5) mg/dl TSH (0.300-4.500) uIu/ml Fld Lyme DNA (PCR) Fluid Comment CSF Appearance Clear CSF Color Colorless Xanthrochromic No xanthochromia CSF WBC 2 (0-5) CSF RBC 3 (0-) CSF Cell Count Tube # 3 CSF Chemistry Tube # 1 CSF Glucose 59 (40-70) mg/dl CSF LDH Pending CSF Total Protein 44.7 (15-45) mg/dl CSF Albumin CSF IgG CSF IgG Index CSF IgG Synthesis Rate CSF Myelin Basic Protein CSF IgG Oligoclonal Bnd CSF Lyme IgG (Immblot) CSF Lyme IgG Bands Det CSF Lyme IgM (Immblot) CSF Lyme IgM Bands Det CSF C.neoform/gat PCR (NotDetected) CSF CMV DNA (PCR) (NotDetected) CSF Enterovirus (PCR) (NotDetected) CSF E. coli K1 (PCR) (NotDetected) CSF H. influenzae (PCR) (NotDetected) CSF HSV I (PCR) (NotDetected) CSF HSV II (PCR) (NotDetected) CSF HHV 6 (PCR) (NotDetected) CSF L.monocytogenes PCR (NotDetected) CSF N. meningitidis PCR (NotDetected) CSF Parechovirus (PCR) (NotDetected) CSF S. agalactiae (PCR) (NotDetected) CSF S. pneumoniae (PCR) (NotDetected) CSF VZV DNA (PCR) (NotDetected) IgG Albumin (NASH) GLYNN Screen ANCA Lyme Specimen Source Lyme Disease IgG Ab (Negative) Lyme Disease IgM Ab (Negative) 06/03/22 06/03/22 06/03/22 Range/Units 14:02 09:42 09:41 ESR 30 H (0-20) mm/hr C-Reactive Protein (0-0.5) mg/dl TSH 0.686 (0.300-4.500) uIu/ml Fld Lyme DNA (PCR) Fluid Comment CSF Appearance CSF Color Xanthrochromic CSF WBC (0-5) CSF RBC (0-) CSF Cell Count Tube # CSF Chemistry Tube # CSF Glucose (40-70) mg/dl CSF LDH CSF Total Protein (15-45) mg/dl CSF Albumin CSF IgG CSF IgG Index CSF IgG Synthesis Rate CSF Myelin Basic Protein CSF IgG Oligoclonal Bnd CSF Lyme IgG (Immblot) Cancelled CSF Lyme IgG Bands Det Cancelled CSF Lyme IgM (Immblot) Cancelled CSF Lyme IgM Bands Det Cancelled CSF C.neoform/gat PCR (NotDetected) CSF CMV DNA (PCR) (NotDetected) CSF Enterovirus (PCR) (NotDetected) CSF E. coli K1 (PCR) (NotDetected) CSF H. influenzae (PCR) (NotDetected) CSF HSV I (PCR) (NotDetected) CSF HSV II (PCR) (NotDetected) CSF HHV 6 (PCR) (NotDetected) CSF L.monocytogenes PCR (NotDetected) CSF N. meningitidis PCR (NotDetected) CSF Parechovirus (PCR) (NotDetected) CSF S. agalactiae (PCR) (NotDetected) CSF S. pneumoniae (PCR) (NotDetected) CSF VZV DNA (PCR) (NotDetected) IgG Albumin (NASH) GLYNN Screen ANCA Lyme Specimen Source Lyme Disease IgG Ab (Negative) Lyme Disease IgM Ab (Negative) 06/03/22 06/03/22 06/02/22 Range/Units 09:41 09:41 12:21 ESR (0-20) mm/hr C-Reactive Protein < 0.50 (0-0.5) mg/dl TSH (0.300-4.500) uIu/ml Fld Lyme DNA (PCR) Fluid Comment CSF Appearance CSF Color Xanthrochromic CSF WBC (0-5) CSF RBC (0-) CSF Cell Count Tube # CSF Chemistry Tube # CSF Glucose (40-70) mg/dl CSF LDH CSF Total Protein (15-45) mg/dl CSF Albumin Cancelled CSF IgG Cancelled CSF IgG Index Cancelled CSF IgG Synthesis Rate Cancelled CSF Myelin Basic Protein Cancelled CSF IgG Oligoclonal Bnd Cancelled CSF Lyme IgG (Immblot) Cancelled CSF Lyme IgG Bands Det Cancelled CSF Lyme IgM (Immblot) Cancelled CSF Lyme IgM Bands Det Cancelled CSF C.neoform/gat PCR (NotDetected) CSF CMV DNA (PCR) (NotDetected) CSF Enterovirus (PCR) (NotDetected) CSF E. coli K1 (PCR) (NotDetected) CSF H. influenzae (PCR) (NotDetected) CSF HSV I (PCR) (NotDetected) CSF HSV II (PCR) (NotDetected) CSF HHV 6 (PCR) (NotDetected) CSF L.monocytogenes PCR (NotDetected) CSF N. meningitidis PCR (NotDetected) CSF Parechovirus (PCR) (NotDetected) CSF S. agalactiae (PCR) (NotDetected) CSF S. pneumoniae (PCR) (NotDetected) CSF VZV DNA (PCR) (NotDetected) IgG Cancelled Albumin (NASH) Cancelled GLYNN Screen Pending ANCA Pending Lyme Specimen Source Lyme Disease IgG Ab Negative (Negative) Lyme Disease IgM Ab Negative (Negative) PG Care Time/CCT Total # of Minutes Spent Total Time Spent with Patient: Total time spent is greater than 50% in coordination of care (as documented) at patient's floor/unit and/or counseling patient: Coding Level of Care Code 34052 Subseq Hosp Care Lvl 3 Diagnoses Multiple sclerosis G35 Right leg weakness R29.898 Anxiety disorder F41.9 Vitamin D deficiency E55.9 Ocular hypertension H40.059 Microscopic hematuria R31.29 DVT prophylaxis Z29.9
[2022-06-04 07:10] LABS: Hematocrit (blood only) 37.1 % (34.1-44.9); Hemoglobin 12.5 g/dl (12.0-16.0); Mean Corpuscular Hemoglobin 26.8 pg (25.0-34.0); Mean Corpuscular Hgb Conc 33.7 g/dL (32.0-36.0); Mean Corpuscular Volume 79.4 fL (80.0-100.0); Mean Platelet Volume 9.6 fL (9.4-12.3); Platelet Count 331 K/uL (130-400); RDW Standard Deviation 40.5 fL (36.4-46.3); Red Blood Count 4.67 M/uL (3.93-5.22); White Blood Count 10.43 K/ul (4.8-10.8)
[2022-06-04 07:45] LABS: Basophils # (auto) 0.01 K/uL (0-0.2); Basophils % (auto) 0.1 %; Immature Granulocytes # (auto) 0.09 K/uL (0.00-0.02); Immature Granulocytes % (auto) 0.9 %; Lymphocytes # (auto) 0.68 K/uL (1.2-3.4); Lymphocytes % (auto) 6.5 %; Monocytes # (auto) 0.06 K/uL (0.24-0.82); Monocytes % (auto) 0.6 %; Neutrophils # (auto) 9.59 K/uL (1.4-6.5); Neutrophils % (auto) 91.9 %
[2022-06-04 07:59] LABS: Ferritin 24.5 ng/ml (8-388)
[2022-06-04] MEDS: CHOLECALCIFEROL 5,000 UNITS 125 MCG TAB PO SCH (08:25)
[2022-06-04] MEDS: PANTOprazole 40 MG TAB PO SCH (08:25)
[2022-06-04 08:43] LABS: BUN Creatinine Ratio 23.5 (10-20); Creatinine Clr Calc Pharmacy 124.3 ml/min; Est GFR (African American) 139.4 ml/min; Est GFR (Non-African American) 120.3 ml/min; Magnesium 1.8 mg/dl (1.7-2.4); Phosphorus 3.7 mg/dl (2.5-4.9); Potassium 4.1 mmol/L (3.5-5.1)
[2022-06-04] MEDS: CYANOCOBALAMIN 1000 MCG/ML VIAL IM SCH (11:01)
[2022-06-04] MEDS: FERROUS SULFATE 325 MG TAB PO SCH (11:02)
--- NOTE | 2022-06-04 11:40 | Neurology Progress Note ---
Date of Service June 04, 2022 Assessment & Plan (1) Demyelinating disease: (2) Multiple sclerosis: (3) Right leg weakness: (4) Vitamin D deficiency: (5) B12 deficiency: Plan this patient has a relatively new onset of right lower extremity weakness and dysesthesias. MRI of the brain shows multiple bilateral white matter lesions of varying sizes with lesions perpendicular to the ventricles. These lesions are consistent with an inflammatory disease such as multiple sclerosis, but they are not pathognomonic. she has a tumefactive lesion in the left parietal lobe likely responsible for the right lower extremity symptoms. Interestingly, at her age of 42, she has no history of previous symptoms suggestive of MS. she had a viral illness recently and this could be a postviral inflammatory reaction however I would have expected her, with the amount of lesions she has in her [employer]), to be much "sicker". Her clinical history is not consistent with ADEM and she has no encephalopathy. These lesions were not consistent with tumor either. Overall, she does fit best with multiple sclerosis. LP results are not back yet but there was no obvious infection. She has had a negative Lyme antibody titer and inflammatory studies are pending. Sed rate was 30. B12 was somewhat low at 198. The patient has received her 1 g of Solu-Medrol last evening. Already, right lower extremity has more strength and function. Recommendations: 1. Continue a total of 3 days IV Solu-Medrol ( 1 g per day). If there is concern about steroid effect on glaucoma and ocular pressures a tapering Medrol Dosepak does not have to be done after the Solu-Medrol. 2. Continued physical and occupational therapy 3. Awaiting the rest of the labs to come back, as well as the special protein studies of the LP. 4. replace vitamin B12 and vitamin-D. aim for a vitamin-D level of at least 50. 5.Follow-up in Neurology with the PA in 2-3 weeks to go over the final LP results. 6. We may consider a 2nd opinion with an MS specialist 7. there is no need for additional tests at this time. Overall, I spent a total of 90 minutes with this case including review of records, review of all MRI films, direct evaluation the patient at bedside, and discussion of the case with the patient, her spouse, the RN, and Dr. Pena including differential diagnosis and treatment options. Admission and Anticipated Discharge Date Admission Date: June 02, 2022 Subjective Patient feels that her right lower extremity has better movement and sensation than it did before. She has had 1 dose of Solu-Medrol last evening. Additional history, from the patient (and her spouse was present today), suggest that she has no history of episodes of weakness, numbness, or vision changes. She has had no balance issues. She does have a history of low iron, low vitamin-D, and low B12. The patient had MRIs of the cervical and thoracic spine, with and without cont rast, and the showed no evidence of lesions within the cord. There was a C6-7 disc issue of a mild nature without significant spinal stenosis. We reviewed these films. MRI of the brain was reviewed with the patient and the films were shared. She has multiple large and very 8 size lesions diffusely white matter with lesions perpendicular to the ventricles bilaterally ( Sotelo's fingers) LP showed 2 white cells, 3 red cells, and protein 44. I have fire was negative. B12 was 188. CBC and Chem profile were unremarkable. Sed rate was 20. Results & Data ([facility]) Vital Signs (Past 12 Hours) Vital Signs Temp Pulse Pulse Resp BP Pulse Ox O2 Del Method 06/04/22 07:22 36.4 C L 68 16 109/66 95 Room Air 06/04/22 03:08 36.5 C 60 18 101/61 95 Room Air 06/04/22 01:16 77 Exam (Neuro) Physical Exam: she is awake and alert. Speech is without aphasia or dysarthria. Mood and affect. Thought processes are intact , with good long and short-term memory. there are no abnormal involuntary movements. Gait and stance were unremarkable. PG Care Time/CCT Total # of Minutes Spent Total Time Spent with Patient: Total time spent is greater than 50% in coordination of care (as documented) at patient's floor/unit and/or counseling patient: Coding Level of Care Code 78526 Subseq Hosp Care Lvl 3 Diagnoses Demyelinating disease G37.9 Multiple sclerosis G35 Right leg weakness R29.898 Vitamin D deficiency E55.9 B12 deficiency E53.8 Time Spent (min) 90 Comment Add modifiers as able
[2022-06-04] MEDS ORDERED: hydrOXYzine HCl 10 MG TAB PO PRN (12:32)
--- NOTE | 2022-06-04 12:40 | Hospitalist Progress Note ---
Date of Service June 04, 2022 Assessment & Plan (1) Multiple sclerosis: Plan: Patient presents with new onset right lower extremity weakness/dystonia for the past 4 days prior to admission Patient denies any trauma to the back or to the lower extremity No other focal neurological symptoms or visual changes prior to this CT of the lumbar spine shows minimal posterior disc protrusion and degenerative disc disease at L4-L5 with mild acquired compromise of the central canal at L4- L5. MRI of the brain shows numerous foci of T2 signal abnormality scattered in the subcortical compartment or white matter with a 1.4 cm lesion in the left parietal lobe white matter showing restricted diffusion and postcontrast enhancement consistent with demyelinating disease. MRI of the cervical, thoracic, and lumbar spine without cord lesions. Some mild degenerative disc disease Serum Lyme serology is negative TSH normal, ESR elevated at 30, CRP negative Does have a history of vitamin D deficiency with recent level being 20 as per patient COVID-19 negative B12 quite well at 198 but would not cause these lesions on MRI Neurology consultation appreciated-by definition, she meets criteria for multiple sclerosis as her MRI includes acute and chronic appearing lesions as well as her focal neurological symptoms and perhaps some intermittent facial pain and headaches over the past few years. Neurology does not think her clinical presentation is highly suggestive of ADEM (she did have a recent viral sounding URI but does not have any encephalopathy) or neuromyelitis optica spectrum disorder. Not likely to be brain metastases as per my discussion with neurology given presentation and appearance. Neurology thinks that most likely this is MS, but not 100% positive. Alternatives could be [employer] Lyme disease, Sjogren's syndrome, lupus, sarcoidosis She is already starting to improve her right lower extremity strength and function after receiving her first dose of IV Solu-Medrol 1 g. -GLYNN, ANCA, Sjogren's antibodies, angiotensin converting enzyme all still pendi ng and will need to be followed up on after discharge -Lumbar puncture-performed on 06/03-no evidence of meningitis, Lyme CSF pending, Gram stain negative and culture pending, oligo clonal bands/MS panel pending and will take approximately 1 week to return-we will need outpatient follow-up -Continue 3-day course of Solu-Medrol 1000 mg IV once daily and then follow with the Medrol dose pack taper on discharge -Started Protonix 40 mg p.o. daily to prevent GI related symptoms with high-dose steroids-would continue for 2-week course -Can give hydroxyzine 10 mg p.o. every 8 hours as needed for anxiety related to steroid use and situational anxiety, insomnia -Watch for signs of increased intraocular pressure while on steroids given her known ocular hypertension-she will need close follow-up with ophthalmology or optometry after discharge especially while on steroid Dosepak taper -Neurology recommends that she will likely also need a second opinion from an MS specialist at a tertiary care facility-this can be arranged by neurology as an outpatient -Follow-up with neurology in 2 to 3 weeks to go over the final results (2) Right leg weakness: Plan: As above, improving on IV Solu-Medrol Consult PT/OT to evaluate and make recommendations for necessary assistive devices and/or orthotics (3) Anxiety disorder: Plan: Continue home sertraline 75 mg p.o. at bedtime Can give hydroxyzine as needed for situational anxiety secondary to ongoing current medical issues or if has insomnia related to high-dose steroids (4) Vitamin D deficiency: Plan: Reports history of severe vitamin D deficiency but most recent level was up to 20 Continue home vitamin D3 5000 units once daily Neurology suggests aiming for a vitamin D level of at least 50 Follow-up as an outpatient (5) Ocular hypertension: Plan: Follows with cardiology clinical nurse specialist in [facility] Given that steroids can increase intraocular pressure, she will need close follow-up after discharge Our nurse navigator will help to arrange this appointment when the eye doctor's office opens again next week after the holiday Monitor for pain in the eye or changes in vision with treatment (6) Microscopic hematuria: Plan: Urinalysis contaminated with many epithelial cells but also with 10-20 RBCs/hpf LMP 2 weeks ago Urine culture with pinpoint growth preliminarily but suspect this is a contaminated sample given all the epithelial cells and 0 WBCs Plan to repeat urinalysis in a few weeks from now with a clean-catch to ensure no true persistent microscopic hematuria-this can be done with the PCP (7) B12 deficiency: Plan: B12 level checked and quite low at 198 Start IM B12 replacement 1000 mcg daily times the 2 days she is left ear Continue vitamin B12 1000 mcg by mouth once daily on discharge Unclear cause-has B12 deficiency and iron deficiency-suggest GI work-up with endoscopy as an outpatient (8) Iron deficiency: Plan: Low normal hemoglobin with microcytosis Transferrin saturation somewhat low at 15% but ferritin quite low at 24 She has 2 moderately heavy days of her menses followed by 4-5 light days. No metrorrhagia. This potentially could cause some of her iron deficiency, however given concomitant B12 deficiency, suggest GI work-up as above For now, begin ferrous sulfate 325 Mg p.o. once daily and can take docusate stool softener as needed for associated constipation (9) DVT prophylaxis: Plan: Ambulation Disposition-continued stay, but can discharge to home tomorrow evening after her final dose of IV Solu-Medrol Admission and Anticipated Discharge Date Admission Date: June 02, 2022 Subjective Patient reports some improvement in the weakness in her right leg and ankle. Has some right lower back pain as well. Not sleeping well here in the hospital. No other new symptoms. Telemetry with normal sinus rhythm with rates in the 70s to 80s I discussed her care at length with the neurologist. Review of Systems Review of Systems: All systems reviewed & are unremarkable except as noted in HPI & below Physical Exam Constitutional: WD/WN, vitals as above Eyes: + anicteric sclerae Neck: trachea midline, no thyromegaly Respiratory: normal respiratory effort, lungs clear to auscultation Cardiovascular: RRR, no murmur, no edema Chest (Breasts): Chest: normal inspection of chest Gastrointestinal (Abdomen): normal bowel sounds, soft, nontender, no hepatosplenomegaly Musculoskeletal: Extremities: extremities normal to inspection; no cyanosis and no clubbing Skin: no rashes, warm and dry Neurologic: moves all extremities, + focal motor deficit (4+/5 strength right leg extension/flexion, 5/5 right dorsiflexion/plantarfl) and awake Speech / Cognition: normal speech Motor/Sensory: no tremor Psychiatric: A+Ox3, euthymic affect Lymphatic: no lymphedema Results & Data Results & Data ([facility]) Vital Signs (Past 12 Hours) Vital Signs Temp Pulse Pulse Resp BP Pulse Ox O2 Del Method 06/04/22 12:00 36.8 C 63 16 103/62 95 Room Air 06/04/22 07:22 36.4 C L 68 16 109/66 95 Room Air 06/04/22 03:08 36.5 C 60 18 101/61 95 Room Air 06/04/22 01:16 77 Laboratory Results 06/04/22 06/04/22 06/04/22 Range/Units 06:26 06:26 06:26 WBC (4.8-10.8) K/ul RBC (3.93-5.22) M/uL Hgb (12.0-16.0) g/dl Hct (34.1-44.9) % MCV (80.0-100.0) fL MCH (25.0-34.0) pg MCHC (32.0-36.0) g/dL RDW Std Deviation (36.4-46.3) fL RDW Coeff of July (11.5-14.5) % Plt Count (130-400) K/uL MPV (9.4-12.3) fL Immature Gran % (Auto) % Neut % (Auto) % Lymph % (Auto) % Harnett % (Auto) % Eos % (Auto) % Baso % (Auto) % Neut # (Auto) (1.4-6.5) K/uL Lymph # (Auto) (1.2-3.4) K/uL Harnett # (Auto) (0.24-0.82) K/uL Eos # (Auto) (0-0.50) K/uL Baso # (Auto) (0-0.2) K/uL Immature Gran # (Auto) (0.00-0.02) K/uL Sodium 136 (136-145) mmol/L Potassium 4.1 (3.5-5.1) mmol/L Chloride 104 (98-107) mmol/L Carbon Dioxide 23 (21-32) mmol/L Anion Gap 9 (3-11) BUN 12 (6-23) mg/dl Creatinine 0.51 L (0.6-1.2) mg/dl Est Cr Clr Drug Dosing 124.3 ml/min Est GFR ( Amer) 139.4 ml/min Est GFR (Non-Af Amer) 120.3 ml/min BUN/Creatinine Ratio 23.5 H (10-20) Glucose 137 H (70-99(Fasting)) mg/dl Calcium 9.0 (8.5-10.1) mg/dl Phosphorus 3.7 D (2.5-4.9) mg/dl Magnesium 1.8 (1.7-2.4) mg/dl Iron 54 (35-150) mcg/dl TIBC 366 (250-450) mcg/dl Unsaturated IBC 312 (155-355) mcg/dl Transferrin % Sat 15 (15-50) % Ferritin 24.5 (8-388) ng/ml Angiotensin Convert Enz Pending Vitamin B12 198 (180-914) pg/ml Folate 13.63 (>5.38) ng/ml SS-A/Ro Antibody Pending SS-B/La Antibody Pending 06/04/22 Range/Units 06:26 WBC 10.43 (4.8-10.8) K/ul RBC 4.67 (3.93-5.22) M/uL Hgb 12.5 (12.0-16.0) g/dl Hct 37.1 (34.1-44.9) % MCV 79.4 L (80.0-100.0) fL MCH 26.8 (25.0-34.0) pg MCHC 33.7 (32.0-36.0) g/dL RDW Std Deviation 40.5 (36.4-46.3) fL RDW Coeff of July 14.0 (11.5-14.5) % Plt Count 331 (130-400) K/uL MPV 9.6 (9.4-12.3) fL Immature Gran % (Auto) 0.9 % Neut % (Auto) 91.9 % Lymph % (Auto) 6.5 % Harnett % (Auto) 0.6 % Eos % (Auto) 0.0 % Baso % (Auto) 0.1 % Neut # (Auto) 9.59 H (1.4-6.5) K/uL Lymph # (Auto) 0.68 L (1.2-3.4) K/uL Harnett # (Auto) 0.06 L (0.24-0.82) K/uL Eos # (Auto) 0.00 (0-0.50) K/uL Baso # (Auto) 0.01 (0-0.2) K/uL Immature Gran # (Auto) 0.09 H (0.00-0.02) K/uL Sodium (136-145) mmol/L Potassium (3.5-5.1) mmol/L Chloride (98-107) mmol/L Carbon Dioxide (21-32) mmol/L Anion Gap (3-11) BUN (6-23) mg/dl Creatinine (0.6-1.2) mg/dl Est Cr Clr Drug Dosing ml/min Est GFR ( Amer) ml/min Est GFR (Non-Af Amer) ml/min BUN/Creatinine Ratio (10-20) Glucose (70-99(Fasting)) mg/dl Calcium (8.5-10.1) mg/dl Phosphorus (2.5-4.9) mg/dl Magnesium (1.7-2.4) mg/dl Iron (35-150) mcg/dl TIBC (250-450) mcg/dl Unsaturated IBC (155-355) mcg/dl Transferrin % Sat (15-50) % Ferritin (8-388) ng/ml Angiotensin Convert Enz Vitamin B12 (180-914) pg/ml Folate (>5.38) ng/ml SS-A/Ro Antibody SS-B/La Antibody PG Care Time/CCT Total # of Minutes Spent Total Time Spent with Patient: Total time spent is greater than 50% in coordination of care (as documented) at patient's floor/unit and/or counseling patient: Coding Level of Care Code 81618 Subseq Hosp Care Lvl 3 Diagnoses Multiple sclerosis G35 Right leg weakness R29.898 Anxiety disorder F41.9 Vitamin D deficiency E55.9 Ocular hypertension H40.059 Microscopic hematuria R31.29 B12 deficiency E53.8 Iron deficiency E61.1 DVT prophylaxis Z29.9
[2022-06-04] MEDS: ACETAMINOPHEN 325 MG TAB PO PRN ×2 (16:31→19:41)
[2022-06-04] MEDS: methylPREDNISolone 1,000 MG in DEXTROSE 5% 250 ML IV SCH (17:13)
[2022-06-04] MEDS: SERTRALINE HCL 50 MG TABLET PO SCH (20:52)
[2022-06-05] MEDS: ACETAMINOPHEN 325 MG TAB PO PRN (09:45)
[2022-06-05] MEDS: PANTOprazole 40 MG TAB PO SCH ×2 (09:46→20:40)
[2022-06-05] MEDS: CHOLECALCIFEROL 5,000 UNITS 125 MCG TAB PO SCH (09:46)
[2022-06-05] MEDS: FERROUS SULFATE 325 MG TAB PO SCH (09:46)
[2022-06-05] MEDS: CYANOCOBALAMIN 1000 MCG/ML VIAL IM SCH (09:47)
[2022-06-05] MEDS: ACETAMINOPHEN 500 MG TAB PO PRN ×2 (14:58→22:59)
[2022-06-05] MEDS: methylPREDNISolone 1,000 MG in DEXTROSE 5% 250 ML IV SCH (16:46)
--- NOTE | 2022-06-05 19:48 | Hospitalist Progress Note ---
Date of Service June 05, 2022 Assessment & Plan (1) Multiple sclerosis: Plan: Patient presents with new onset right lower extremity weakness/dystonia for the past 4 days prior to admission Patient denies any trauma to the back or to the lower extremity No other focal neurological symptoms or visual changes prior to this CT of the lumbar spine shows minimal posterior disc protrusion and degenerative disc disease at L4-L5 with mild acquired compromise of the central canal at L4- L5. MRI of the brain shows numerous foci of T2 signal abnormality scattered in the subcortical compartment or white matter with a 1.4 cm lesion in the left parietal lobe white matter showing restricted diffusion and postcontrast enhancement consistent with demyelinating disease. MRI of the cervical, thoracic, and lumbar spine without cord lesions. Some mild degenerative disc disease Serum Lyme serology is negative TSH normal, ESR elevated at 30, CRP negative Does have a history of vitamin D deficiency with recent level being 20 as per patient COVID-19 negative B12 quite well at 198 but would not cause these lesions on MRI Neurology consultation appreciated-by definition, she meets criteria for multiple sclerosis as her MRI includes acute and chronic appearing lesions as well as her focal neurological symptoms and perhaps some intermittent facial pain and headaches over the past few years. Neurology does not think her clinical presentation is highly suggestive of ADEM (she did have a recent viral sounding URI but does not have any encephalopathy) or neuromyelitis optica spectrum disorder. Not likely to be brain metastases as per my discussion with neurology given presentation and appearance. Neurology thinks that most likely this is MS, but not 100% positive. Alternatives could be URGENT CARE Lyme disease, Sjogren's syndrome, lupus, sarcoidosis She is already starting to improve her right lower extremity strength and function after receiving her first dose of IV Solu-Medrol 1 g. -GLYNN, ANCA, Sjogren's antibodies, angiotensin converting enzyme all still pending and will need to be followed up on after discharge -Lumbar puncture-performed on 06/03-no evidence of meningitis, Lyme CSF pending, Gram stain negative and culture pending, oligo clonal bands/MS panel pending and will take approximately 1 week to return-we will need outpatient follow-up -Continue 3-day course of Solu-Medrol 1000 mg IV once daily and then follow with the Medrol dose pack taper on discharge -Started Protonix 40 mg p.o. daily to prevent GI related symptoms with high-dose steroids-would continue for 2-week course -Can give hydroxyzine 10 mg p.o. every 8 hours as needed for anxiety related to steroid use and situational anxiety, insomnia -We will monitor for signs of increased intraocular pressure while on steroids given her known ocular hypertension-she will need close follow-up with ophthalmology or optometry after discharge especially while on steroid Dosepak taper -Neurology recommends that she will likely also need a second opinion from an MS specialist at a tertiary care facility-this can be arranged by neurology as an outpatient -Follow-up with neurology in 2 to 3 weeks to go over the final results (2) Right leg weakness: Plan: As above, improving on IV Solu-Medrol Consult PT/OT to evaluate and make recommendations for necessary assistive devices and/or orthotics (3) Anxiety disorder: Plan: Continue home sertraline 75 mg p.o. at bedtime Can give hydroxyzine as needed for situational anxiety secondary to ongoing current medical issues or if has insomnia related to high-dose steroids (4) Vitamin D deficiency: Plan: Reports history of severe vitamin D deficiency but most recent level was up to 20 Continue home vitamin D3 5000 units once daily Neurology suggests aiming for a vitamin D level of at least 50 Follow-up as an outpatient (5) Ocular hypertension: Plan: Follows with heat plant specialist in [facility] Given that steroids can increase intraocular pressure, she will need close follow-up after discharge Our nurse navigator will help to arrange this appointment when the eye doctor's office opens again next week after the holiday Monitor for pain in the eye or changes in vision with treatment (6) Microscopic hematuria: Plan: Urinalysis contaminated with many epithelial cells but also with 10-20 RBCs/hpf LMP 2 weeks ago Urine culture with pinpoint growth preliminarily but suspect this is a contaminated sample given all the epithelial cells and 0 WBCs Plan to repeat urinalysis in a few weeks from now with a clean-catch to ensure no true persistent microscopic hematuria-this can be done with the PCP (7) B12 deficiency: Plan: B12 level checked and quite low at 198 Start IM B12 replacement 1000 mcg daily times the 2 days she is left ear Continue vitamin B12 1000 mcg by mouth once daily on discharge Unclear cause-has B12 deficiency and iron deficiency-suggest GI work-up with endoscopy as an outpatient (8) Iron deficiency: Plan: Low normal hemoglobin with microcytosis Transferrin saturation somewhat low at 15% but ferritin quite low at 24 She has 2 moderately heavy days of her menses followed by 4-5 light days. No metrorrhagia. This potentially could cause some of her iron deficiency, however given concomitant B12 deficiency, suggest GI work-up as above For now, begin ferrous sulfate 325 Mg p.o. once daily and can take docusate stool softener as needed for associated constipation (9) DVT prophylaxis: Plan: Ambulation Disposition-continued stay, but can discharge to home tomorrow evening after her final dose of IV Solu-Medrol Admission and Anticipated Discharge Date Admission Date: June 04, 2022 Subjective Patient reports some improvement in the weakness in her right leg and ankle. Patient reports a slight headache and shoulder pain slept better last night Physical Exam Constitutional: WD/WN, vitals as above ENMT: external ear and nose normal, oropharynx normal Neck: trachea midline, no thyromegaly Respiratory: normal respiratory effort, lungs clear to auscultation Cardiovascular: RRR, no murmur, no edema Gastrointestinal (Abdomen): normal bowel sounds, soft, nontender, no hepatosplenomegaly Musculoskeletal: Right lower extremity weakness improving Results & Data Results & [facility]) Vital Signs (Past 12 Hours) Vital Signs Temp Pulse Resp BP Pulse Ox O2 Del Method 06/05/22 15:01 36.8 C 79 18 133/81 99 Room Air PG Care Time/CCT Total # of Minutes Spent Total Time Spent with Patient: Total time spent is greater than 50% in coordination of care (as documented) at patient's floor/unit and/or counseling patient: Coding Level of Care Code 17609 Subseq Hosp Care Lvl 2 Diagnoses Multiple sclerosis G35 Right leg weakness R29.898 Anxiety disorder F41.9 Vitamin D deficiency E55.9 Ocular hypertension H40.059 Microscopic hematuria R31.29 B12 deficiency E53.8 Iron deficiency E61.1 DVT prophylaxis Z29.9
[2022-06-05] MEDS: SERTRALINE HCL 50 MG TABLET PO SCH (20:40)
[2022-06-06 07:33] LABS: Basophils # (auto) 0.01 K/uL (0-0.2); Basophils % (auto) 0.1 %; Hematocrit (blood only) 37.8 % (34.1-44.9); Hemoglobin 12.6 g/dl (12.0-16.0); Immature Granulocytes # (auto) 0.12 K/uL (0.00-0.02); Immature Granulocytes % (auto) 0.8 %; Lymphocytes # (auto) 1.09 K/uL (1.2-3.4); Lymphocytes % (auto) 7.6 %; Mean Corpuscular Hemoglobin 26.8 pg (25.0-34.0); Mean Corpuscular Hgb Conc 33.3 g/dL (32.0-36.0); Mean Corpuscular Volume 80.4 fL (80.0-100.0); Mean Platelet Volume 9.9 fL (9.4-12.3); Monocytes # (auto) 0.46 K/uL (0.24-0.82); Monocytes % (auto) 3.2 %; Neutrophils # (auto) 12.74 K/uL (1.4-6.5); Neutrophils % (auto) 88.3 %; Platelet Count 344 K/uL (130-400); RDW Coefficient of Variation 14.3 % (11.5-14.5); RDW Standard Deviation 41.7 fL (36.4-46.3); White Blood Count 14.42 K/ul (4.8-10.8)
[2022-06-06] MEDS: ACETAMINOPHEN 500 MG TAB PO PRN (07:42)
[2022-06-06 08:10] LABS: BUN Creatinine Ratio 20.3 (10-20); Est GFR (African American) 129.4 ml/min; Est GFR (Non-African American) 111.6 ml/min; Potassium 3.8 mmol/L (3.5-5.1)
[2022-06-06] MEDS: FERROUS SULFATE 325 MG TAB PO SCH (09:13)
[2022-06-06] MEDS: PANTOprazole 40 MG TAB PO SCH (09:13)
[2022-06-06] MEDS: CHOLECALCIFEROL 5,000 UNITS 125 MCG TAB PO SCH (09:13)
[2022-06-06] MEDS: CYANOCOBALAMIN 1000 MCG/ML VIAL IM SCH (09:28)
--- NOTE | 2022-06-06 09:36 | Neurology Progress Note ---
Date of Service June 06, 2022 Assessment & Plan (1) Demyelinating disease: (2) Multiple sclerosis: (3) Right leg weakness: (4) Vitamin D deficiency: (5) B12 deficiency: Plan This patient has a relatively new onset of right lower extremity weakness with dysesthesias. MRI of the brain showed multiple bilateral white matter lesions of varying sizes with lesions perpendicular to the ventricles. These lesions are consistent with an inflammatory disease such as multiple sclerosis, but they are not pathognomonic. she has a tumefactive lesion in the left parietal lobe likely responsible for the right lower extremity symptoms. Interestingly, at her age of 42, she has no history of previous symptoms suggestive of MS. she had a viral illness recently and this could be a postviral inflammatory reaction however I would have expected her, with the amount of lesions she has in her [employer]), to be much "sicker". Her clinical history is not consistent with ADEM and she has no encephalopathy. These lesions were not consistent with tumor either. Overall, she does fit best with multiple sclerosis. LP results are not back yet but there was no obvious infection. She has had a negative Lyme antibody titer and inflammatory studies are pending. Sed rate was 30. B12 was somewhat low at 198. The patient has received three doses of 1 gram Solu-Medrol each day for the last 3 days. her right lower extremity has more strength and function. she can walk now although she is slow and cautious. Recommendations: 1. There is a concern about steroid effect on glaucoma and ocular pressures -therefore, avoid a tapering Medrol Dosepak. 2. Continued physical and occupational therapyThis can be done as an outpatient. 3. Awaiting the rest of the labs to come back, as well as the special protein studies of the LP. These might take 1-2 weeks to come back. 4. replace vitamin B12 and vitamin-D. Aim for a vitamin-D level of at least 50. 5.Follow-up in Neurology with the PA in 2 weeks, to go over the final LP results And make final recommendations. we will have to initiate disease modifying therapy most likely. 6. We may consider a 2nd opinion with an MS specialist 7. there is no need for additional tests at this time. Overall, I spent a total of 35 minutes with this case including review of records, review of all MRI films, direct evaluation the patient at bedside, and discussion of the case with the patient, the RN, and Dr. Ferguson, including differential diagnosis and treatment options. Admission and Anticipated Discharge Date Admission Date: June 04, 2022 Subjective Patient is feeling improved in her right lower extremity with no new issues. Blood pressure is 132/80. She is afebrile. Laboratory studies were unremarkable except for a glucose of 125 and a WBC of 14.4 (she completed 3 days of Solu-Medrol 1 gram each day and these lab parameters are consistent with steroid effect ) Results & Data ([facility]) Vital Signs (Past 12 Hours) Vital Signs Temp Pulse Resp BP Pulse Ox O2 Del Method 06/06/22 07:33 36.6 C 77 16 132/80 97 Room Air Exam (Neuro) Physical Exam: Patient is awake and alert. Speech is without aphasia or dysarthria. Mood is normal and affect is appropriate. Thought processes are intact. Extraocular eye muscles are intact without nystagmus. There is no facial droop. Coordination is normal in the arms without tremor or ataxia. Gait is slow and cautious and she limps favoring the right leg. Strength is 5/5 diffusely in the left lower extremity both proximally and di stally. Strength is 4+/5 proximally in the left lower extremity and closer to 4/5 distally in left lower extremity She has 2 beats of clonus in the right ankle. Otherwise reflexes are 2/4 in the legs bilaterally symmetrically. PG Care Time/CCT Total # of Minutes Spent Total Time Spent with Patient: Total time spent is greater than 50% in coordination of care (as documented) at patient's floor/unit and/or counseling patient: Coding Level of Care Code 59812 Subseq Hosp Care Lvl 3 Diagnoses Demyelinating disease G37.9 Multiple sclerosis G35 Right leg weakness R29.898 Vitamin D deficiency E55.9 B12 deficiency E53.8 Time Spent (min) 35
--- NOTE | 2022-06-07 00:34 | Discharge Summary ---
Date of Service June 07, 2022 Admission HPI Per Admitting Provider This is a 42-year-old female with no significant past medical history who presents to the emergency department with complaints of progressively worsening right leg weakness over the past 4 days. Patient reports that she woke up about 4 days ago with complaints of right lower extremity weakness and experienced difficulty ambulating as she felt that she had to drag her right foot with significant effort to walk. Patient reports that she has experienced progressing of the symptoms over the past few days and hence became concerned and presents to ED for further evaluation. Patient otherwise denies any injury to the back or lower right lower extremity. Patient reported the symptoms were present as soon as she woke up a few days ago and has steadily been worsening. Patient saw her PCP for evaluation who had ordered MRI as an outpatient which was scheduled for next week. Patient however was ambulating with help of crutch and felt her symptoms were worsening and hence presents to ED for evaluation. Patient otherwise denies any bowel or bladder incontinence. Patient denies any pain in her lower extremity. No saddle anesthesia reported. Patient denies any headache or any visual disturbances. The only abnormality her PCP had reported to her was her vitamin D levels were reported to be low. No fevers or chills reported. No recent COVID infection or flu infection Patient reports that she is unable to stand steadily on her right leg. Patient had a CT of the lumbar spine that shows degenerative disc disease with disc herniation at L4-L5 and subsequently patient had an MRI that shows numerous foci of T2 signal abnormality scattered in the subcortical compartment and a 1.4 cm lesion in the left parietal lobe white matter showing restricted diffusion and postcontrast enhancement and the findings indicating a demyelinating disorder such as multiple sclerosis with active demyelination but no hemorrhage or mass- effect noted. ED physician had contacted neurology who recommended no steroids at this time. Principal Diagnosis Demyelinating illness Discharge Exam Constitutional: no acute distress, pleasant. Vitals as above. HEENT: No scleral injection or discharge. . Clear oropharynx without exudate. Neck: Supple without lymphadenopathy or thyromegaly. Trachea midline. Lungs: Clear to auscultation bilaterally with good effort. Cardiac: Normal rhythm. No murmurs.No extremity edema. 2+ distal peripheral pulses. Abdomen:Bowel sounds present. Soft and nondistended. . No guarding MSK: No cyanosis or clubbing. Right lower extremity weakness noted but improving since admission Gait improving Skin: No rashes, warm, dry. Neurologic: Grossly intact cranial nerves. . Discharge Data Allergies Allergy/AdvReac Type Severity Reaction Status Date / Time No Known Allergies Allergy Unverified 06/03/22 06:16 Consultations 06/02/22 19:56 Consult Neurology Stat 06/02/22 20:05 ED Decision to Admit Stat Ordered Studies 06/02/22 14:05 CT lumbar spine wo con Stat CT pelvis wo con Stat 06/02/22 15:03 MRI Brain [MR brain MS wo/w con] Stat MRI Lumbar Spine [MR lumbar spine wo con] Stat 06/03/22 08:26 FL lumbar puncture diagnostic Routine 06/03/22 08:30 MR cervical spine wo/w con Routine MR thoracic spine wo/w con Routine Hospital Course (1) Multiple sclerosis: Patient presents with new onset right lower extremity weakness/dystonia for the past 4 days prior to admission Patient denies any trauma to the back or to the lower extremity No other focal neurological symptoms or visual changes prior to this CT of the lumbar spine shows minimal posterior disc protrusion and degenerative disc disease at L4-L5 with mild acquired compromise of the central canal at L4- L5. MRI of the brain shows numerous foci of T2 signal abnormality scattered in the subcortical compartment or white matter with a 1.4 cm lesion in the left parietal lobe white matter showing restricted diffusion and postcontrast enhancement consistent with demyelinating disease. MRI of the cervical, thoracic, and lumbar spine without cord lesions. Some mild degenerative disc disease Serum Lyme serology is negative TSH normal, ESR elevated at 30, CRP negative Does have a history of vitamin D deficiency with recent level being 20 as per patient COVID-19 negative B12 quite well at 198 but would not cause these lesions on MRI Neurology consultation appreciated-by definition, she meets criteria for multiple sclerosis as her MRI includes acute and chronic appearing lesions as well as her focal neurological symptoms and perhaps some intermittent facial pain and headaches over the past few years. Neurology does not think her clinical presentation is highly suggestive of ADEM (she did have a recent viral sounding URI but does not have any encephalopathy) or neuromyelitis optica spectrum disorder. Not likely to be brain metastases as per my discussion with neurology given presentation and appearance. Neurology thinks that most likely this is MS, but not 100% positive. Alternatives could be [employer] Lyme disease, Sjogren's syndrome, lupus, sarcoidosis She is already starting to improve her right lower extremity strength and function after receiving her first dose of IV Solu-Medrol 1 g. -GLYNN, ANCA, Sjogren's antibodies, angiotensin converting enzyme all still pending and will need to be followed up on after discharge -Lumbar puncture-performed on 06/03-no evidence of meningitis, Lyme CSF pending, Gram stain negative and culture pending, oligo clonal bands/MS panel pending and will take approximately 1 week to return-we will need outpatient follow-up -Continue 3-day course of Solu-Medrol 1000 mg IV once daily and then follow with the Medrol dose pack taper on discharge -Started Protonix 40 mg p.o. daily to prevent GI related symptoms with high-dose steroids-would continue for 2-week course -Can give hydroxyzine 10 mg p.o. every 8 hours as needed for anxiety related to steroid use and situational anxiety, insomnia Discussed with neurology and they recommend patient can be discharged without oral steroids because of slightly increased risk of exacerbating her ocular hypertension Patient will follow up with neurology in 1 week to follow-up on LP results PT OT eval completed -Neurology recommends that she will likely also need a second opinion from an MS specialist at a tertiary care facility-this can be arranged by neurology as an outpatient -Follow-up with neurology in 1-2 weeks to go over the final results (2) Right leg weakness: As above, improving on IV Solu-Medrol Consult PT/OT to evaluate and make recommendations for necessary assistive devices and/or orthotics (3) Anxiety disorder: Continue home sertraline 75 mg p.o. at bedtime Can give hydroxyzine as needed for situational anxiety secondary to ongoing current medical issues or if has insomnia related to high-dose steroids (4) Vitamin D deficiency: Reports history of severe vitamin D deficiency but most recent level was up to 20 Continue home vitamin D3 5000 units once daily Neurology suggests aiming for a vitamin D level of at least 50 Follow-up as an outpatient (5) Ocular hypertension: Follows with correctional casework specialist in town Given that steroids can increase intraocular pressure, she will need close follow-up after discharge Our nurse navigator will help to arrange this appointment when the eye doctor's office opens again next week after the holiday Monitor for pain in the eye or changes in vision with treatment (6) Microscopic hematuria: Urinalysis contaminated with many epithelial cells but also with 10-20 RBCs/hpf LMP 2 weeks ago Urine culture with pinpoint growth preliminarily but suspect this is a contaminated sample given all the epithelial cells and 0 WBCs Plan to repeat urinalysis in a few weeks from now with a clean-catch to ensure no true persistent microscopic hematuria-this can be done with the PCP (7) B12 deficiency: B12 level checked and quite low at 198 Start IM B12 replacement 1000 mcg daily times the 2 days she is left ear Continue vitamin B12 1000 mcg by mouth once daily on discharge Unclear cause-has B12 deficiency and iron deficiency-suggest GI work-up with endoscopy as an outpatient (8) Iron deficiency: Low normal hemoglobin with microcytosis Transferrin saturation somewhat low at 15% but ferritin quite low at 24 She has 2 moderately heavy days of her menses followed by 4-5 light days. No metrorrhagia. This potentially could cause some of her iron deficiency, however given concomitant B12 deficiency, suggest GI work-up as above For now, begin ferrous sulfate 325 Mg p.o. once daily and can take docusate stool softener as needed for associated constipation (9) DVT prophylaxis: Ambulation Disposition-continued stay, but can discharge to home tomorrow evening after her final dose of IV Solu-Medrol Total Time Total Time Spent Total Time Spent (In Minutes): 45 Discharge Plan Discharge Items Patient Disposition: Home - Self-Care Reason For Visit: LE WEAKNESS Discharge Diagnosis: Demyelinating disease Activity: Per Instructions section Lifting: No more than 10 pounds Bathing: No limitations Exercise/Sports: Wait until after follow-up appointment Non-emergency contact: Primary Care Provider and Neurologist Call non-emergency contact if: you have any medication questions and your symptoms worsen Follow-up/Referrals: Braden Early MD [Physician] - 06/16/22 (please call office to confirm appt) Shy Carey [Primary Care Provider] - (Please call MondayJune 07 when office re opens to schedule your follow up appointment) Diet: Heart Healthy Addtl Attending Provider Instructions: 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 for 2 week till seen by neurologist- no severe exertion at work, dont lift over 10 lbs follow with pcp to obtain outpt PT/OT referrals Pending Studies at Discharge: No Stand-Alone Forms: MWI, Smoking Cessation Medications and DC Order Prescriptions: New cyanocobalamin (vitamin B-12) 500 mcg Tablet 1,000 mcg PO QAM Qty: 30 0RF pantoprazole 40 mg Tablet,Delayed Release (Dr/Ec) 40 mg PO BID Qty: 30 0RF ferrous sulfate 325 mg (65 mg iron) Tablet,Delayed Release (Dr/Ec) 325 mg PO QAM Qty: 30 0RF Continued sertraline 25 mg tablet 50 mg PO QAM sertraline 50 mg tablet 50 mg PO QAM cholecalciferol (vitamin D3) 125 mcg (5,000 unit) Tablet 125 mcg PO DAILY Discharge Orders: Discharge Order (Routine); Ordered 06/06/22 Ordered By: Donny Ferguson Admission Data Admit Date/Time: 06/04/22 12:46 Attending Provider: Donny Ferguson Admit Provider: Donny Ferguson Primary Care Provider: Shy Carey Other Providers: Flavio Yadav ; Susy Pena ; Braden Early Other Interventions: Discharge Summary Assessment (RN) Last Done: 06/06/22 12:25 Coding Level of Care Code D/C DAY MANAGEMENT >30 MINS Diagnoses Multiple sclerosis G35 Right leg weakness R29.898 Anxiety disorder F41.9 Vitamin D deficiency E55.9 Ocular hypertension H40.059 Microscopic hematuria R31.29 B12 deficiency E53.8 Iron deficiency E61.1 DVT prophylaxis Z29.9
[2022-06-07] MEDS ORDERED: CYANOCOBALAMIN (B-12) 500 MCG TABLET PO SCH (09:00)
[2022-06-08] MEDS ORDERED: CYANOCOBALAMIN (B-12) 500 MCG TABLET PO SCH (09:00)
[2022-06-08 15:22] LABS: Angiotensin Converting Enzyme 49 U/L (9-67); Anti-SS-A <1.0 NEG AI (<1.0 NEG); Anti-SS-B <1.0 NEG AI (<1.0 NEG)
[2022-06-09 03:02] LABS: Lyme DNA PCR CSF or Synovial Not Detected (Not Detected); Lyme DNA Source CSF; Lyme IgG Band Pattern CSF DNR; Lyme IgG CSF NO BANDS DETECTED; Lyme IgM Band Pattern CSF DNR; Lyme IgM CSF NO BANDS DETECTED
[2022-06-12 10:46] LABS: Albumin, CSF 20.3 mg/dL (8.0-42.0); IgG CSF 3.8 mg/dL (0.8-7.7); IgG Index, CSF 0.73 (<0.66); IgG Serum 1030 mg/dL (600-1640); Myelin Basic Protein <2.0 mcg/L (<=4.0); Synthesis Rate, IgG CSF 3.4 mg/24 h (-9.9-3.3)
[2022-06-12 10:46] LABS: ANCA Screen Negative (Negative); Anti Nuclear Antibody Screen NEGATIVE (NEGATIVE)
== END 2022-06-06 14:14 | disposition home or self-care (01) | DRG 60 ==
LOC: ED 11:11 → 2S 23:45 → SUATTDRO 23:45 → INTOOBSV 23:45 → 2S 06-03 00:30 → SUATTDRO 06-04 12:46 → 3E 06-04 12:47